=== PATIENT | female | born 1935 | race Caucasian/White ===

== ENCOUNTER 2016-08-31 17:37 | Inpatient (IN) ==
[2016-08-31] MEDS ORDERED: Dexamethasone 4 MG/ML VIAL IVP ONE (17:47)
[2016-08-31] MEDS ORDERED: Ipratropium/Albuterol Neb 3 ML IH ONE (17:48)
[2016-08-31] MEDS ORDERED: Racepinephrine Neb 0.5 ML VIAL IH ONE (18:00)
[2016-08-31 18:04] LABS: Basophils % 0.3 %; Eosinophils # 0.5 K/mcL (0.0-0.6); Hematocrit 32.7 % (35.3-44.9); Hemoglobin 11.2 g/dL (11.5-15.4); Immature Granulocytes % 0.6 % (0-4); Lymphocytes # 1.6 K/mcL (0.6-4.6); Lymphocytes % 13.5 %; Mean Corpuscular HGB Conc 34.3 g/dL (31.6-35.5); Mean Corpuscular Hemoglobin 26.9 pg (28.0-33.3); Mean Corpuscular Volume 78.4 fL (83.0-100.0); Mean Platelet Volume 9.2 fL (9.4-12.4); Monocytes # 0.9 K/mcL (0.0-1.3); Monocytes % 7.7 %; Neutrophils # 8.5 K/mcL (1.6-8.9); Platelet Count 266 K/mcL (140-400); Red Blood Count 4.17 M/mcL (3.82-4.97); Red Cell Distribution Width 13.1 % (11.5-14.5); Segmented Neutrophils % 73.9 %
[2016-08-31 18:10] LABS: INR 1.1; Prothrombin Time 11.4 Seconds (9.4-12.1)
[2016-08-31 18:12] LABS: Activated Partial Thrombo Time 33.6 Seconds (26.0-36.0)
[2016-08-31 18:14] LABS: Potassium 4.3 mEq/L (3.5-4.5)
[2016-08-31] MEDS ORDERED: Furosemide 40 MG/4 ML VIAL IVP ONE (20:32)
--- NOTE | 2016-08-31 21:43 | Emergency Department Note ---
Disposition Clinical Impression: Hyponatremia Congestive heart failure Qualifiers: Congestive heart failure type: unspecified congestive heart failure type Congestive heart failure chronicity: acute on chronic Qualified Code(s): I50.9 - Heart failure, unspecified Disposition: Admitted As Inpatient Condition: Good Referrals: NO,PCP [Non-Partnered Physician] - Forms: ED Satisfaction Letter Time of Disposition: 20:45 SOB HPI - General Chief Complaint: ED Shortness of Breath/Dyspnea Stated Complaint: shortness of breath Time Seen by Provider: 08/31/16 17:45 Source: patient, EMS Mode of arrival: ambulatory Limitations: no limitations Nursing Notes Reviewed: Yes Vital Signs Reviewed: Yes - History of Present Illness Patient presents emergency room for evaluation of shortness of breath. Primary care provider is seen her today and was concerned about her having a blood clot in the leg and a pulmonary emboli. Patient denies any other symptoms prior to these events no chest pain no fevers no chills no nausea vomiting or diarrhea. Denies headache or vision change. Patient denies any significant changes medical issue or trauma at this point. Family is with her at the bedside and said that she is acting normally except that she is at increased work of breathing Pt Subjective Complaint: shortness of breath Onset (ago): day(s) Context: other Severity: mild Consistency/Duration: constant Improves with: oxygen, rest Worsens with: lying flat, exertion Known history of: congestive heart failure, other (Neck mass) Associated symptoms: Reports: lower extremity pain Treatment prior to arrival: oxygen, bronchodilator Cough present: Yes Cough Description: Voluntary - Related Data Home Medications Medication Instructions Recorded Confirmed Amlodipine Besylate 10 mg PO DAILY 08/31/16 08/31/16 Aspirin Enteric Coated [Aspirin EC] 81 mg PO DAILY 08/31/16 08/31/16 Atenolol [Tenormin] 50 mg PO QPM 08/31/16 08/31/16 Atenolol [Tenormin] 100 mg PO QAM 08/31/16 08/31/16 Ca/D3/Mag#11/Zinc/Portfolio Director/Wing/Bor 1 each PO DAILY 08/31/16 08/31/16 [Caltrate 600+D Plus Tablet] Carbidopa/Levodopa 25/100 [Sinemet 1 each PO TID 08/31/16 08/31/16 25/100] Lansoprazole [Prevacid] 15 mg PO DAILY 08/31/16 08/31/16 Levothyroxine [Synthroid] 25 mcg PO 0630 08/31/16 08/31/16 Loratadine [Claritin] 10 mg PO DAILY PRN 08/31/16 08/31/16 Losartan Potassium [Cozaar] 50 mg PO DAILY 08/31/16 08/31/16 [place]-3/Dha/Epa/Fish Oil [Fish Oil 1,000 mg PO DAILY 08/31/16 08/31/16 1,000 mg Softgel] Sennosides/Docusate Sodium [Senna 1 - 2 each PO DAILY PRN 08/31/16 08/31/16 Plus] hydrALAZINE [HydrALAZINE] 25 mg PO BID 08/31/16 08/31/16 hydrOXYzine HCl [Hydroxyzine HCl] 25 mg PO HS 08/31/16 08/31/16 Allergies Allergy/AdvReac Type Severity Reaction Status Date / Time No Known Allergies Allergy Verified 08/31/16 17:59 All systems ED: reviewed and negative except as stated. Constitutional: Denies: fever, chills Cardiovascular: Denies: chest pain, palpitations, dyspnea on exertion, orthopnea Respiratory: Reports: stridor. Denies: cough, dyspnea, wheezes Gastrointestinal: Denies: nausea, vomiting, diarrhea Genitourinary: Denies: dysuria, frequency Musculoskeletal: Reports: neck pain. Denies: back pain Neurological: Denies: headache Allergic/Immunologic: Denies: facial swelling Past Medical History - Past Medical History Attestation: Yes The following information was validated with the patient. Source: patient Medical history: Reports: hypertension, thyroid disease, other Psychiatric history: Reports: no psych history - Social History Smoking Status: Never smoker Smokeless Tobacco Status: No Alcohol use: Reports: none Drug use: Reports: none Physical Exam - General Limitations: no limitations General appearance: alert, in no apparent distress - ENT ENT exam: normal oropharynx, mucous membranes moist - Neck Neck exam: Present: full ROM, trachea midline, thyromegaly (Significant thyromegaly noted with firm mass to the greater area the anterior aspect of the neck. Stridor auscultated on exam). Absent: meningismus, lymphadenopathy - Chest Chest inspection: Present: normal inspection, symmetric chest wall rise. Absent : tenderness - Respiratory Respiratory exam: Present: normal lung sounds bilaterally, stridor. Absent: respiratory distress, wheezes - Cardiovascular Cardiovascular exam: Present: regular rate, normal rhythm, normal heart sounds - Abdominal Exam Abdominal exam: Present: soft, Non-Tender. Absent: tenderness, distention, guarding, rebound, rigidity - Extremities Exam Extremities exam: Present: normal inspection, full ROM, normal capillary refill , pedal edema (Right lower extremity edema). Absent: tenderness - Back Exam Back exam: Present: normal inspection - Neurological Exam Neurological exam: Present: alert, oriented X3, CN II-XII intact, normal gait - Skin Skin exam: Present: warm, dry, intact, normal color Course Course Narrative: Patient seen and examined the time of arrival. See history of present illness. 81-year-old female presents with increased work of breathing stridor and shortness of breath with hypoxia from the primary care provider's office. Physical exam shows an moderately distressed female. Sitting upright in the bed slightly leaning forward. There is audible stridor noted on exam patient is a large anterior border noted on the neck evaluation. Lungs appear to be clear heart is regular abdomen soft nontender nondistended. Bilateral lower extremities were evaluated the right lower extremity is small and no signs of pitting edema warmth or redness. Pulses are intact. Neck evaluation shows no signs of acute decompensation at this point. She is range of motion the neck. I am extremely concerned about possible airway related issues at this point. The goiter appears to be a chronic issue according to her. Physical exam shows moderate distress female vital signs are reviewed heart rate is normal pulse ox is diminished at this time she is requiring oxygen for which she does not wear home. Based on the symptoms history presentation as well as a concern for the primary care provider. CT chest CT with contrast of the neck kidney function BNP EKG troponin to be ordered. Concern is noted for fluid overload, lower extremities DVT, pulmonary embolus or infection, large neck mass or infection in the neck as well. Doppler study of the lower stimulator. Symptom control to be provided as needed. Breathing treatments racemic epinephrine steroids to be given at this time. Looked to monitor his treatment course is completed. Patient will need admission the hospital for definitive management. My concern is for airway compromise and decompensation. - Reevaluation(s) Reevaluation #1: Patient found to have hyponatremia based on lab workup. She also has an elevated BNP and fluid overload. Doppler study of the right lower extremity is negative for acute DVT. CT imaging was called in to me by the radiologist from [place]. Patient has a large goiter that is obstructing the trachea at this time. There is likely a 6 mm slit opening where she is able to breathe through at this time. This accounts for the stridor. Patient's symptoms did not change with the medications that were provided to her here. Pulse ox and vital signs of been stable throughout the course of care but still concerning. Consultation was placed on at that time to the on-call intervals and throat physician Dr. patel. The presentation symptom examining finding. Her recommendation is that the patient be transported outside facility for possible stenting esophageal surgery. She does not do that procedure. I went and discussed this concern and recommendations with the family and the patient. Patient family had a long discussion the bedside about what her wishes would be. She does not want surgery on her neck at that time. Family is in agreement with the patient's decision. Patient is of sound mind and able to make her own decisions this time and everybody agrees with that presentation that is at the bedside. Patient signed DNR CCA paperwork was DO NOT INTUBATE and do not cardiac resuscitated. She also does not want acute cricothyrotomy or surgical airway. Patient understands this and understands what the indications are not having these interventions done. Based on the symptoms and history patient does have what appears to be fluid overload and hyponatremia. Patient be given a single dose of Lasix and consultation on the placed with the hospitalist at this time for admission symptom treatment of hyponatremia and fluid overload. Patient family are comfortable with this plan. Discussion was had with the on-call physician Dr. morris. The presentation symptoms and CODE STATUS. No other recommendations this time. No other concerns or symptoms at this time. Vital signs are stable throughout the course of care. Admission process to be completed at this point. Time: 20:30 Vital Signs Temperature 97.2 F L 08/31/16 17:39 Pulse Rate 93 08/31/16 17:39 Respiratory Rate 24 08/31/16 17:39 Blood Pressure 161/73 08/31/16 17:39 O2 Sat by Pulse Oximetry 94 08/31/16 17:39 Temperature 97.2 F L 08/31/16 17:39 Pulse Rate 58 08/31/16 20:57 Respiratory Rate 20 08/31/16 20:57 Blood Pressure 111/81 08/31/16 20:57 O2 Sat by Pulse Oximetry 97 08/31/16 20:57 Oxygen Delivery Oxygen Delivery Nasal Cannula Shortness of Breath/Dyspnea - MDM Narrative Medical decision making narrative: CHF exacerbation, hyponatremia, tracheal stenosis - Medical Records Medical records reviewed: Yes I reviewed the patient's medical records. - Lab Data Lab results reviewed: Yes I reviewed the patient's lab results. Result diagrams: 08/31/16 17:56 08/31/16 17:56 Lab Results 08/31/16 08/31/16 08/31/16 Range/Units 17:56 17:56 17:56 WBC 11.5 H (4.3-11.1) K/mcL RBC 4.17 (3.82-4.97) M/mcL Hgb 11.2 L (11.5-15.4) g/dL Hct 32.7 L (35.3-44.9) % MCV 78.4 L (83.0-100.0) fL MCH 26.9 L (28.0-33.3) pg MCHC 34.3 (31.6-35.5) g/dL RDW 13.1 (11.5-14.5) % Plt Count 266 (140-400) K/mcL MPV 9.2 L (9.4-12.4) fL Immature Gran % 0.6 (0-4) % Seg Neutrophils % 73.9 % Lymphocytes % 13.5 % Monocytes % 7.7 % Eosinophils % 4.0 % Basophils % 0.3 % Neutrophils # 8.5 (1.6-8.9) K/mcL Lymphocytes # 1.6 (0.6-4.6) K/mcL Monocytes # 0.9 (0.0-1.3) K/mcL Eosinophils # 0.5 (0.0-0.6) K/mcL Basophils # 0.0 (0.0-0.2) K/mcL PT 11.4 (9.4-12.1) Seconds INR 1.1 APTT 33.6 (26.0-36.0) Seconds Sodium 119 L* (136-145) mEq/L Potassium 4.3 (3.5-4.5) mEq/L Chloride 90 L (98-109) mEq/L Carbon Dioxide 19 (19-29) mEq/L BUN 16 (7-20) mg/dL Creatinine 1.18 H (0.57-1.11) mg/dL Est GFR ( Amer) 53 L (> 60) Est GFR (Non-Af Amer) 44 L (> 60) BUN/Creatinine Ratio 14 (6-26) Glucose 133 H (70-99) mg/dL Calculated Osmolality 251 L (280-300) Lactic Acid (0.5-2.2) mmol/L Calcium 9.0 (8.6-10.8) mg/dL Troponin I (0-0.03) ng/mL B-Natriuretic Peptide (0-100) pg/mL 08/31/16 08/31/16 08/31/16 Range/Units 17:56 17:56 17:56 WBC (4.3-11.1) K/mcL RBC (3.82-4.97) M/mcL Hgb (11.5-15.4) g/dL Hct (35.3-44.9) % MCV (83.0-100.0) fL MCH (28.0-33.3) pg MCHC (31.6-35.5) g/dL RDW (11.5-14.5) % Plt Count (140-400) K/mcL MPV (9.4-12.4) fL Immature Gran % (0-4) % Seg Neutrophils % % Lymphocytes % % Monocytes % % Eosinophils % % Basophils % % Neutrophils # (1.6-8.9) K/mcL Lymphocytes # (0.6-4.6) K/mcL Monocytes # (0.0-1.3) K/mcL Eosinophils # (0.0-0.6) K/mcL Basophils # (0.0-0.2) K/mcL PT (9.4-12.1) Seconds INR APTT (26.0-36.0) Seconds Sodium (136-145) mEq/L Potassium (3.5-4.5) mEq/L Chloride (98-109) mEq/L Carbon Dioxide (19-29) mEq/L BUN (7-20) mg/dL Creatinine (0.57-1.11) mg/dL Est GFR ( Amer) (> 60) Est GFR (Non-Af Amer) (> 60) BUN/Creatinine Ratio (6-26) Glucose (70-99) mg/dL Calculated Osmolality (280-300) Lactic Acid 1.2 (0.5-2.2) mmol/L Calcium (8.6-10.8) mg/dL Troponin I 0.01 (0-0.03) ng/mL B-Natriuretic Peptide 396 H (0-100) pg/mL - Radiology Data Radiology results reviewed: Yes I reviewed the patient's radiology results. CT imaging of the neck and chest are concerning for a large goiter with tracheal deviation stenosis. Pleural effusions noted on exam. No signs of pulmonary emboli - EKG Data EKG attestation: Yes I reviewed and interpreted this EKG. EKG shows normal: Reports: sinus rhythm, axis, intervals, QRS complexes, ST-T waves Rate: Reports: normal Rhythm: Reports: NSR Critical Care Time Critical Care Time: Yes Total Critical Care Time: 35 Attestation: Independent of medical management consultations and treatment course
--- NOTE | 2016-08-31 23:25 | Internal Med History&Physical ---
<KayodeStanley - Last Filed: 09/01/16 00:07> Date of Encounter: 09/01/16 Time of Encounter: 23:22 Assessment and Plan (1) Acute respiratory failure Current visit: Yes Status: Acute Secondary to significant goiter obstructing her airway as demonstrated on CT; in addition to undiagnosed CHF as she is hyponatremic and fluid overloaded on exam ENT was consulted and recommended surgery but patient refuses aggressive therapy at this time She has having productive clear sputum possibly due to acute bronchitis, will start on Levaquin 500 mg IV daily and collect sputum cx Supportive measures with supplemental oxygen, duonebs scheduled and PRN, and decadron 4 mg q8hr Will consult palliative care to discuss goals of care as patient is DNR/CCA-DNI , appreciate recommendations Qualifiers: Qualified Code(s): J96.00 - Acute respiratory failure, unspecified whether with hypoxia or hypercapnia (2) Hyponatremia Current visit: Yes Status: Acute Sodium found to be 119 upon admission, likely due to CHF exacerbation as demonstrated on CXR and fluid overload clinically Will start on Lasix 40 mg IV BID as she is naive to diuretics and fluid restrict at 1.5 L daily and strict I/O's Limit correction of sodium to under 9 mEq per day to prevent cerebral edema (3) Goiter Current visit: Yes Status: Chronic Although patient denies any recent changes in appearance, the size and subsequent findings on CT suggest her thyromegaly is the primary cause of her respiratory complaints Patient did receive racemic epi and steroids in the ED She confirmed that she does not want any intervention as recommended by our ENT Will continue Synthroid as she states this has helped control the size of her goiter in the past Obtain TSH, free T3/T4 (4) Congestive heart failure Current visit: Yes Status: Suspected Will obtain echocardiogram to evaluate for CHF as she has not been formally diagnosed Fluid restrict and Lasix as above Qualifiers: Congestive heart failure type: unspecified congestive heart failure type Congestive heart failure chronicity: acute on chronic Qualified Code(s): I50.9 - Heart failure, unspecified (5) Hypertension Current visit: Yes Status: Chronic Blood pressures well controlled upon admission Will resume home anti-hypertensives Qualifiers: Qualified Code(s): I10 - Essential (primary) hypertension (6) DVT prophylaxis Current visit: Yes Status: Acute Heparin 5000 units BID Internal Medicine - H&P: HPI Chief complaint: shortness of breath Admitted From: Home Plans for Post Hospital Care: Home History of present illness: Ms. Rooney is a 81 year old female who was sent over from her PCPs office for shortness of breath. Patient was initially concerned about a clot in her right leg as it was swollen and painful. She states that she had progressive shortness of breath over the past 1 or 2 weeks. She denies any pulmonary history and does not use oxygen or inhalers at home. Of note, she does have a significant goiter but states that this has been stable for many decades and has not noted any recent growth, and has not had any problems with swallowing foods/liquids. She is currently on Synthroid and has never been interested in any surgical intervention. She also reports having a productive cough of clear sputum has been going on for several weeks. Patient lives with her daughter and notes that she is very active usually but has had shortness of breath with exertion lately. CT of her neck at the ED showed significant narrowing of her trachea due to thyromegaly and ENT was consulted and recommended transfer to another facility for surgical intervention. Both daughter and granddaughter, the DPOA, are at bedside and confirmed that she does not want any aggressive intervention at this time and wish to change her CODE STATUS to DNR CCA/DNI. Patient denies any fever, chest pain, neck pain, lightheadedness, nausea, vomiting, diarrhea or urinary complaints. Past Med Surg Social Fam HX - Past Medical History Medical history: hypertension, thyroid disease, other Psychiatric history: no psych history - Social History Smoking Status: Never smoker Smokeless Tobacco Status: No Alcohol use: none Drug use: none - Family History Mother History Unknown: Yes Living Status: Age at : 89 Cause of : OLD AGE Internal Medicine - H&P: Meds Amlodipine Besylate 10 mg PO DAILY 08/31/16 [History] Aspirin Enteric Coated [Aspirin EC] 81 mg PO DAILY 08/31/16 [History] Atenolol [Tenormin] 50 mg PO QPM 08/31/16 [History] Atenolol [Tenormin] 100 mg PO QAM 08/31/16 [History] Ca/D3/Mag#11/Zinc/Optical Mechanic Apprentice/Wing/Bor [Caltrate 600+D Plus Tablet] 1 each PO DAILY 08/12 [History] Carbidopa/Levodopa 25/100 [Sinemet 25/100] 1 each PO TID 08/31/16 [History] Lansoprazole [Prevacid] 15 mg PO DAILY 08/31/16 [History] Levothyroxine [Synthroid] 25 mcg PO 0630 08/31/16 [History] Loratadine [Claritin] 10 mg PO DAILY PRN 08/31/16 [History] Losartan Potassium [Cozaar] 50 mg PO DAILY 08/31/16 [History] [place]-3/Dha/Epa/Fish Oil [Fish Oil 1,000 mg Softgel] 1,000 mg PO DAILY 08/31/16 [History] Sennosides/Docusate Sodium [Senna Plus] 1 - 2 each PO DAILY PRN 08/31/16 [ History] hydrALAZINE [HydrALAZINE] 25 mg PO BID 08/31/16 [History] hydrOXYzine HCl [Hydroxyzine HCl] 25 mg PO HS 08/31/16 [History] Allergies No Known Allergies Allergy (Verified 08/31/16 17:59) All Systems PM: A 10-system review of systems was performed and is negative for pertinent findings except as documented above in the HPI. - Constitutional Constitutional: weakness, no chills, no fever(s), no night sweats - EENT Eyes: no change in vision, no discharge, no pain, no photophobia Ears: no ear discharge, no ear pain, no tinnitus Nose, mouth and throat: neck mass, no dysphagia, no nasal discharge, no neck pain, no sore throat - Cardiovascular Cardiovascular ROS IM: dyspnea, dyspnea on exertion, no chest pain, no diaphoresis, no lightheadedness, no palpitations, no syncope - Respiratory Respiratory: cough, change in phlegm color, no dyspnea, no wheezing, no excessive phlegm production - Gastrointestinal Gastrointestinal: no abdominal pain, no diarrhea, no hematemesis, no hematochezia, no melena, no nausea, no vomiting - Genitourinary Genitourinary: no change in urinary stream, no dysuria, no flank pain, no hematuria - Musculoskeletal Musculoskeletal ROS IM: muscle cramps, no numbness, no tingling - Integumentary Integumentary IM: no rash, no unusual bruising - Neurological Neurological ROS: restless legs, no confusion, no convulsions, no focal weakness , no numbness, no tingling, no tremor(s) - Hematologic/Lymphatic Hematologic/Lymphatic: no easy bruising - Constitutional Vitals: Temp Pulse Resp BP Pulse Ox 97.6 F 60 16 137/62 97 08/31/16 22:51 08/31/16 22:51 08/31/16 22:51 08/31/16 22:51 08/31/16 22:51 General appearance: Present: cooperative, pleasant, no acute distress, answers questions appropriately - Head Head exam: Present: atraumatic, normocephalic - Eye Eye exam: Present: PERRL, conjuntiva pink, sclera anicteric - Neck Neck exam general surgery: Present: supple, trachea midline. Absent: lymphadenopathy - Respiratory Respiratory exam: Present: stridor. Absent: accessory muscle use, rales, rhonchi, wheezes - Cardiovascular Cardiovascular exam: Present: RRR, +S1, +S2. Absent: diastolic murmur, gallop, rubs, systolic murmur - GI/Abdominal GI/Abdominal exam: Present: normal bowel sounds, soft, no peritoneal signs. Absent: distended, tenderness - Extremities Exam Extremities exam: Present: pedal edema (R>L), tenderness, warm, radial pulses palpable and symetrical. Absent: calf tenderness, cyanotic - Neurological Exam Neurological exam: Present: alert, no focal deficits. Absent: facial droop, speech deficit - Skin Skin exam: Present: dry, intact Internal Med - H&P Results - Labs CBC & Chem 7: 08/31/16 17:56 08/31/16 17:56 <Janay Ramirez - Last Filed: 09/01/16 08:19> Date of Encounter: 09/01/16 Internal Medicine - H&P: HPI History of present illness: Ms. Rooney is a 81 year old female All Systems PM: A 10-system review of systems was performed and is negative for pertinent findings except as documented above in the HPI. - Constitutional Vitals: Temp Pulse Resp BP Pulse Ox 97.7 F 63 18 119/47 96 09/01/16 04:19 09/01/16 04:19 09/01/16 04:19 09/01/16 04:19 09/01/16 04:19 Internal Med - H&P Results - Labs CBC & Chem 7: 09/01/16 02:55 09/01/16 02:55 Labs: Short CBC 09/01/16 Range/Units 02:55 WBC 7.9 (4.3-11.1) K/mcL Hgb 10.4 L (11.5-15.4) g/dL Hct 30.1 L (35.3-44.9) % Plt Count 236 (140-400) K/mcL Neutrophils # 7.1 (1.6-8.9) K/mcL BMP 09/01/16 02:55 Sodium 120 L* Potassium 4.6 H Chloride 90 L Carbon Dioxide 19 BUN 19 Creatinine 1.23 H Glucose 129 H Calcium 8.8 - Attending Attestation I examined this patient and my medical decision-making was reviewed with the Resident Physician. I agree with the documented findings, disposition and treatment plan as described
[2016-08-31] MEDS ORDERED: Ondansetron ODT 4 MG TAB.RAPDIS SL PRN (23:55)
[2016-08-31] MEDS ORDERED: Naloxone 0.4 MG/ML INJ IVP PRN (23:55)
[2016-08-31] MEDS ORDERED: Acetaminophen 325 MG TABLET PO PRN (23:55)
[2016-08-31] MEDS ORDERED: Loratadine 10 MG TABLET PO PRN (23:58)
[2016-08-31] MEDS ORDERED: Sennosides/Docusate Sodium TABLET PO PRN (23:58)
[2016-09-01] MEDS ORDERED: Ipratropium/Albuterol Neb 3 ML IH PRN (00:07)
[2016-09-01] MEDS ORDERED: Levofloxacin 500 MG/100 ML 500 MG/100 ML BAG IVPB SCH (01:00)
[2016-09-01] MEDS: *HR* HYDROcodone/Acet 5/325 mg TABLET PO PRN ×2 (01:02→16:33)
[2016-09-01 04:11] LABS: Basophils % 0.1 %; Eosinophils % 0.1 %; Hematocrit 30.1 % (35.3-44.9); Hemoglobin 10.4 g/dL (11.5-15.4); Immature Platelets 3.7 % (1.1-6.1); Lymphocytes # 0.7 K/mcL (0.6-4.6); Lymphocytes % 8.3 %; Mean Corpuscular HGB Conc 34.6 g/dL (31.6-35.5); Mean Corpuscular Hemoglobin 27.2 pg (28.0-33.3); Mean Corpuscular Volume 78.8 fL (83.0-100.0); Monocytes # 0.1 K/mcL (0.0-1.3); Monocytes % 0.8 %; Neutrophils # 7.1 K/mcL (1.6-8.9); Platelet Count 236 K/mcL (140-400); Red Blood Count 3.82 M/mcL (3.82-4.97); Red Cell Distribution Width 13.2 % (11.5-14.5); Segmented Neutrophils % 89.7 %
[2016-09-01 04:28] LABS: Calcium 8.8 mg/dL (8.6-10.8); Potassium 4.6 mEq/L (3.5-4.5)
[2016-09-01 04:44] LABS: Thyroid Stimulating Hormone 0.62 mcIU/mL (0.350-4.840); Triiodothyronine (T3) Free 2.08 pg/mL (1.71-3.71)
[2016-09-01] MEDS: Ipratropium/Albuterol Neb 3 ML IH SCH ×4 (04:44→21:55)
[2016-09-01] MEDS: Levothyroxine 25 MCG TABLET PO SCH (06:49)
[2016-09-01] MEDS: *HR* Heparin 5,000 UNIT/ML VIAL SQ SCH ×2 (06:49→17:22)
--- NOTE | 2016-09-01 07:27 | Venous Imaging Report ---
LE Venous Duplex Patient Name:Rachel Rooney Order Number:[id number] Procedure Date:08/31/2016 Date:5Age:81 yrs Gender:Female Location:[facility] ED Room #: ER1 Wool Buyer:Yoko Tenoriozuri Referring MD:Nahid Rebolledo DO machine engraver:Savi Palacios MD Reading MD:Simone Miranda MD Primary Indications:swelling Secondary Indications: Impressions: Normal right lower extremity deep and superficial venous exam. Normal contralateral common femoral vein. Recommendations: After imaging the patient returned to their room. Gave vascular preliminary results to Nahid Rebolledo in the emergency department on 08/31/2016 at 18:58. Test completed on 08/31/2016 at 6:47:00 pm. Findings Venous Duplex Results: Right: Venous imaging of the lower extremity reveals full patency and normal vessel compressibility of the right distal iliac, right common femoral, right superficial femoral, right popliteal, right posterior tibial, right peroneal, right great saphenous and right lesser saphenous. Doppler signals in the evaluated veins were normal. Left: Venous imaging of the lower extremity reveals full patency and normal vessel compressibility of the left common femoral. Doppler signals in the evaluated veins were normal. Prior Study: No prior study available for comparison. Lower Extremity Venous Duplex Side Vein Compress Spontaneous Flow Augment Diameter (cm) Depth (cm) Right Distal Iliac Normal Yes Phasic Yes Right Common Femoral Normal Yes Phasic Yes Right Superficial Femoral Normal Yes Phasic Yes Right Popliteal Normal Yes Phasic Yes Right Posterior Tibial Normal Yes Phasic Yes Right Peroneal Normal Yes Phasic Yes Right Great Saphenous Normal Yes Phasic Yes Right Lesser Saphenous Normal Yes Phasic Yes Left Common Femoral Normal Yes Phasic Yes Updated by Simone Miranda MD on 09/01/2016 7:20:34 AM electronically signed on 09/01/2016 7:20:44 AM with status of Final
[2016-09-01] MEDS: Dexamethasone 4 MG/ML VIAL IVP SCH ×2 (09:19→16:33)
[2016-09-01] MEDS: Carbidopa/Levodopa 25/100 TABLET PO SCH ×3 (09:19→20:08)
[2016-09-01] MEDS: Aspirin Enteric Coated 81 MG Tablet PO SCH (09:19)
[2016-09-01] MEDS: amLODIPine 5 MG TABLET PO SCH (09:19)
[2016-09-01] MEDS: Furosemide 40 MG/4 ML VIAL IVP SCH ×2 (09:20→20:08)
[2016-09-01 09:57] LABS: Potassium 4.8 mEq/L (3.5-4.5)
--- NOTE | 2016-09-01 11:26 | Palliative - Consult Note ---
Date of Encounter: 09/01/16 Time of Encounter: 11:00 - Assessment and Plan (1) Dyspnea Current Visit: Yes Status: Acute Assessment and plan: Patient states slightly improved. Remains on supportive oxygen. On antibiotic therapy as well. She was began on steroids for possible stridor/airway obstruction on admission. Monitor Qualifiers: Dyspnea type: shortness of breath Qualified Code(s): R06.02 - Shortness of breath (2) Generalized pain Current Visit: Yes Status: Acute Assessment and plan: Utilized [place] x2 since admission. Monitor. Most pain at this time r/t legs and edema. Monitor. (3) Counseling regarding advanced care planning and goals of care Current Visit: Yes Status: Acute Assessment and plan: Met with pt and granddaughter re: goals of care. She lives with daughter Danitza , and granddaughter Kassy is primary POA. She has living will completed as well and Kassy brought copies of these and they have been placed on the medical record. Patient has also already transitioned code status to DNR/DNI. She does not desire any type of surgical intervention for goiter, and has been very outspoken regarding her wishes. Spoke with Dr. Rivas, who believes that her acute dyspnea is related to CHF and possible pneumonia. For additional testing today. Will continue to monitor clinical course. (4) Congestive heart failure Current Visit: Yes Status: Suspected Qualifiers: Congestive heart failure type: unspecified congestive heart failure type Congestive heart failure chronicity: acute on chronic Qualified Code(s): I50.9 - Heart failure, unspecified (5) Goiter Current Visit: Yes Status: Chronic (6) Hyponatremia Current Visit: Yes Status: Acute Palliative-CN HPI - Data of Consult Consult date: 09/01/16 Requesting Physician: Tracy Rivas MD Primary Care Provider: Savi Palacios - Consult Narrative Palliative Care/Comfort Measures: Palliative care History of present illness: Ms. Rooney is a 81 year old female who arrived to ER with c/o increasing shortness of breath. She has history of Parkinsons disease, HTN, and thyroid disease. There was concern re: pt has large goiter and CT demonstrated compression on trachea with narrowing of airway. Discussion with pt/family regarding surgical intervention was held, however any intervention was declined by patient. She was started on IV Decadron. She was also hyponatremic, and on fluid restriction. Receiving treatment with IV antibiotics as well for possible pneumonia and IV diuretics for heart failure. Awaiting echocardiogram. Upon my visit, pt is sitting on side of bed. Granddaughter and great-grandsons at bedside. She denies any pain, does complain of "restless legs and discomfort from the edema". Still somewhat short of breath, states improved slightly from admission. Palliative care was consulted to assist with goals of care discussion with patient with possible airway constriction/obstruction and she has refused surgical intervention or intubation. CC: Tracy Rivas MD Past Med Surg Social Fam HX - Past Medical History Medical history: hypertension, thyroid disease, other (Parkinson's disease) Psychiatric history: no psych history - Social History Smoking Status: Never smoker Smokeless Tobacco Status: No Alcohol use: none Drug use: none - Family History Mother History Unknown: Yes Living Status: Age at : 89 Cause of : OLD AGE Medications and Allergies Amlodipine Besylate 10 mg PO DAILY 08/31/16 [History] Aspirin Enteric Coated [Aspirin EC] 81 mg PO DAILY 08/31/16 [History] Atenolol [Tenormin] 50 mg PO QPM 08/31/16 [History] Atenolol [Tenormin] 100 mg PO QAM 08/31/16 [History] Ca/D3/Mag#11/Zinc/Customer Account Technician/Wing/Bor [Caltrate 600+D Plus Tablet] 1 each PO DAILY 08/12 [History] Carbidopa/Levodopa 25/100 [Sinemet 25/100] 1 each PO TID 08/31/16 [History] Lansoprazole [Prevacid] 15 mg PO DAILY 08/31/16 [History] Levothyroxine [Synthroid] 25 mcg PO 0630 08/31/16 [History] Loratadine [Claritin] 10 mg PO DAILY PRN 08/31/16 [History] Losartan Potassium [Cozaar] 50 mg PO DAILY 08/31/16 [History] [place]-3/Dha/Epa/Fish Oil [Fish Oil 1,000 mg Softgel] 1,000 mg PO DAILY 08/31/16 [History] Sennosides/Docusate Sodium [Senna Plus] 1 - 2 each PO DAILY PRN 08/31/16 [ History] hydrALAZINE [HydrALAZINE] 25 mg PO BID 08/31/16 [History] hydrOXYzine HCl [Hydroxyzine HCl] 25 mg PO HS 08/31/16 [History] Allergies No Known Allergies Allergy (Verified 08/31/16 17:59) All systems: reviewed and no additional remarkable complaints except as stated ( Shortness of breath at rest, restless legs, lower extremity edema) Palliative Care-Exam - Constitutional Vitals: Temp Pulse Resp BP Pulse Ox 97.6 F 62 16 139/70 96 09/01/16 07:44 09/01/16 07:44 09/01/16 10:51 09/01/16 07:44 09/01/16 10:51 General appearance: Present: no acute distress - Head Head Exam: Present: normal inspection, normocephalic - ENT Additional comments: Large goiter noted to left neck - Neck Neck exam: Present: thyromegaly - Respiratory Respiratory exam: Present: decreased breath sounds - Cardiovascular Cardiovascular exam: Present: +S1, +S2 - GI/Abdominal Exam GI/Abdominal exam: Present: normal bowel sounds, soft - Extremities Exam Additional comments: 2+edema lower extremities - Neurological Exam Neurological exam: Present: alert, oriented X3, strengths equal and symetr throughout - Skin Skin exam: Present: dry, pallor, warm Internal Medicine - CN: Reslt - Labs CBC & Chem 7: 09/01/16 02:55 09/01/16 09:28 Labs: Short CBC 09/01/16 Range/Units 02:55 WBC 7.9 (4.3-11.1) K/mcL Hgb 10.4 L (11.5-15.4) g/dL Hct 30.1 L (35.3-44.9) % Plt Count 236 (140-400) K/mcL Neutrophils # 7.1 (1.6-8.9) K/mcL BMP 09/01/16 09/01/16 02:55 09:28 Sodium 120 L* 121 L Potassium 4.6 H 4.8 H Chloride 90 L 90 L Carbon Dioxide 19 20 BUN 19 22 H Creatinine 1.23 H 1.47 H Glucose 129 H 168 H Calcium 8.8 9.0 - ABG Interpretation ABG results: PT/INR, D-dimer PT 11.4 Seconds (9.4-12.1) 08/31/16 17:56 Consult Discharge Plan - Plan Referrals: Savi Palacios MD [Primary Care Provider] - (SENT REQUEST ON 09-01-16 @ 1187) NO,PCP [Non-Partnered Physician] - Palliative Quality Palliative Quality: Screen for Code Status: Yes, Screen for Goals of Care: Yes, Screen for Pain: Yes, If Pain Regimen Started, Initiate Bowel Regimen: Yes, Screen for Nausea/Vomitting: Yes Code Status: 08/31/16 23:55 Resuscitation Status: Active [RES] Routine Comment: Resuscitation Status: [id number]
--- NOTE | 2016-09-01 11:47 | Internal Med Progress Note ---
Date of Encounter: 09/01/16 Time of Encounter: 11:33 - Subjective Interval history: Mrs. Rachel Rooney is an 81-year-old female who has a large multi-nodular goiter resented with shortness of breath due to multiple factors including compression of trachea with the enlarged goiter, new right lower and middle lobe pneumonia which could be aspiration, new symmetrical bilateral pleural effusions perhaps related to new onset CHF she denies any chest pain but she does have productive cough. She is not known to have any cardiac issues in the past and therefore I will recheck her troponin and waiting for her echocardiogram to be completed while she has been started on IV Lasix 40 twice a day. Her CBC CMP and magnesium will be checked periodically. She has has in started on IV Levaquin which I will DC and start her on IV Zosyn. She is already on IV Decadron and nebulizers which can be continued. He does not have any prior history of smoking though. Patient was seen by ENT in ER yesterday who recommended surgical intervention for her goiter but patient declined. We will see with medical management how much her smear improved however this morning she looked pretty stable and even it I took her nasal oxygen off and she was still maintaining oxygen saturation in the range of 95%. She also has hyponatremia and perhaps chronic kidney disease as she is followed by nephrology beside hypertension and Parkinson disease. As IV Lasix was given her sodium started coming up which signifies that it could be due to underlying volume overload. Palliative care is going to see the patient. I could not access to the problem list therefore here I will make a problem list for her this visit. Acute respiratory distress, tracheal compression secondary to enlarged multinodular goiter, onset congestive heart failure, right sided pneumonia, COPD with exacerbation, hyponatremia, hypertension and stage III chronic kidney disease Parkinson - Constitutional Vitals: Temp Pulse Resp BP Pulse Ox 97.6 F 62 16 139/70 96 09/01/16 07:44 09/01/16 07:44 09/01/16 10:51 09/01/16 07:44 09/01/16 10:51 General appearance: Present: cooperative, pleasant, no acute distress, answers questions appropriately Internal Medicine: Result - Labs CBC & Chem 7: 09/01/16 02:55 09/01/16 09:28 Labs: Short CBC 09/01/16 Range/Units 02:55 WBC 7.9 (4.3-11.1) K/mcL Hgb 10.4 L (11.5-15.4) g/dL Hct 30.1 L (35.3-44.9) % Plt Count 236 (140-400) K/mcL Neutrophils # 7.1 (1.6-8.9) K/mcL BMP 09/01/16 09/01/16 02:55 09:28 Sodium 120 L* 121 L Potassium 4.6 H 4.8 H Chloride 90 L 90 L Carbon Dioxide 19 20 BUN 19 22 H Creatinine 1.23 H 1.47 H Glucose 129 H 168 H Calcium 8.8 9.0 - ABG Interpretation ABG results: PT/INR, D-dimer PT 11.4 Seconds (9.4-12.1) 08/31/16 17:56 Consult Discharge Plan - Plan Referrals: NO,PCP [Non-Partnered Physician] -
[2016-09-01] MEDS: Piperacillin/Tazobactam 3.375 GM in D5% in Water (Mini-Bag+) 100 ML IVPB SCH (16:33)
--- NOTE | 2016-09-01 17:37 | Electrocardiograph Report ---
[place] [id number] Test Date: 2016-08-31 Pat Name: Rachel Rooney Department: 103 Room: 2N06 Gender: F Credit Department Manager: FER : 1935 Requested By: Nahid Rebolledo Order Number: [id number] Reading MD: Darcie Orozco Measurements Intervals [place] Rate: 75 P: 47 AK: 170 QRS: -15 QRSD: 88 T: 5 QT: 392 QTc: 421 Interpretive Statements SINUS RHYTHM LEFT VENTRICULAR HYPERTROPHY AND ST-T CHANGE Electronically Signed On 09-01-2016 17:35:59 EDT by Darcie Orozco
[2016-09-02] MEDS: Piperacillin/Tazobactam 3.375 GM in D5% in Water (Mini-Bag+) 100 ML IVPB SCH ×3 (00:48→16:32)
[2016-09-02] MEDS: Dexamethasone 4 MG/ML VIAL IVP SCH ×2 (00:48→08:38)
[2016-09-02] MEDS: Ipratropium/Albuterol Neb 3 ML IH SCH ×4 (03:58→21:04)
[2016-09-02 04:04] LABS: Basophils % 0.1 %; Eosinophils % 0.1 %; Hemoglobin 10.2 g/dL (11.5-15.4); Lymphocytes # 1.3 K/mcL (0.6-4.6); Lymphocytes % 8.7 %; Mean Corpuscular Hemoglobin 27.1 pg (28.0-33.3); Mean Corpuscular Volume 79.8 fL (83.0-100.0); Mean Platelet Volume 9.8 fL (9.4-12.4); Monocytes # 0.7 K/mcL (0.0-1.3); Monocytes % 4.5 %; Neutrophils # 12.7 K/mcL (1.6-8.9); Platelet Count 302 K/mcL (140-400); Red Blood Count 3.76 M/mcL (3.82-4.97); Red Cell Distribution Width 13.2 % (11.5-14.5); Segmented Neutrophils % 85.6 %
[2016-09-02 04:19] LABS: Albumin 3.7 g/dL (3.5-5.0); Albumin/Globulin Ratio 1.2 (1.1-2.2); Bilirubin,Total 0.5 mg/dL (0.2-1.2); Calcium 8.5 mg/dL (8.6-10.8); Globulin 3.2 g/dL (2.4-3.5); Potassium 4.3 mEq/L (3.5-4.5); Total Protein 6.9 g/dL (6.0-8.3)
[2016-09-02] MEDS ORDERED: *HR* Heparin 5,000 UNIT/ML VIAL ONE (06:09)
[2016-09-02] MEDS: *HR* Heparin 5,000 UNIT/ML VIAL SQ SCH ×2 (06:19→16:32)
[2016-09-02] MEDS: Levothyroxine 25 MCG TABLET PO SCH (06:20)
[2016-09-02] MEDS: Furosemide 40 MG/4 ML VIAL IVP SCH ×2 (08:41→20:02)
--- NOTE | 2016-09-02 08:43 | Internal Med Progress Note ---
Date of Encounter: 09/02/16 Time of Encounter: 08:40 - Assessment and plan (1) Bacterial pneumonia Current Visit: Yes Status: Acute Assessment and plan: On IV antibiotics continue monitoring CBC and clinical improvement (2) Bilateral pleural effusion Current Visit: Yes Status: Acute Assessment and plan: Perhaps related to congestive heart failure continue diuresis (3) Acute diastolic (congestive) heart failure Current Visit: Yes Status: Acute Assessment and plan: Echocardiogram performed showed ejection fraction above 60% while RV pressure in the range of 35 signifying moderate pulmonary hypertension and dilated left atrium with mitral regurgitation continue diuresis (4) Multinodular goiter Current Visit: Yes Status: Acute Assessment and plan: Compressing on trachea, ENT has evaluated the patient, patient declined surgical option. If she agrees to surgery she will be transferred to [place]. Thyroid function test checked the satisfactory and goiter does not seem toxic (5) DVT prophylaxis Current Visit: Yes Status: Acute Assessment and plan: On Lovenox (6) Hypertension Current Visit: Yes Status: Chronic Assessment and plan: Resume medication and continue monitoring daily Qualifiers: Hypertension type: essential hypertension Qualified Code(s): I10 - Essential (primary) hypertension (7) Dyspnea Current Visit: Yes Status: Acute Assessment and plan: Probably multifactorial as her goiter is compressing on trachea, also has bilateral pleural effusion with acute diastolic congestive heart failure and right-sided pneumonia. ENT evaluation obtained and patient declined surgical options. Continue diuretic and antibiotics. Monitor oxygen demand Qualifiers: Dyspnea type: shortness of breath Qualified Code(s): R06.02 - Shortness of breath (8) Counseling regarding advanced care planning and goals of care Current Visit: Yes Status: Acute Assessment and plan: Palliative care offered but patient declined she is DNR CC DNR (9) COPD with acute exacerbation Current Visit: Yes Status: Acute Assessment and plan: IV steroids and med nebs continue monitoring oxygen demand (10) Stage III chronic kidney disease Current Visit: Yes Status: Acute Assessment and plan: Continue monitoring renal function and avoid nephrotoxins - Subjective Interval history: Mrs. Rachel Rooney is an 81-year-old female who has a large multi-nodular goiter resented with shortness of breath due to multiple factors including compression of trachea with the enlarged goiter, new right lower and middle lobe pneumonia which could be aspiration, new symmetrical bilateral pleural effusions perhaps related to new onset CHF she denies any chest pain but she does have productive cough. She is not known to have any cardiac issues in the past and therefore I will recheck her troponin and waiting for her echocardiogram to be completed while she has been started on IV Lasix 40 twice a day. Her CBC CMP and magnesium will be checked periodically. She has has in started on IV Levaquin which I will DC and start her on IV Zosyn. She is already on IV Decadron and nebulizers which can be continued. He does not have any prior history of smoking though. Patient was seen by ENT in ER yesterday who recommended surgical intervention for her goiter but patient declined. We will see with medical management how much her smear improved however this morning she looked pretty stable and even it I took her nasal oxygen off and she was still maintaining oxygen saturation in the range of 95%. She also has hyponatremia and perhaps chronic kidney disease as she is followed by nephrology beside hypertension and Parkinson disease. As IV Lasix was given her sodium started coming up which signifies that it could be due to underlying volume overload. Palliative care is going to see the patient. I could not access to the problem list therefore here I will make a problem list for her this visit. Acute respiratory distress, tracheal compression secondary to enlarged multinodular goiter, onset congestive heart failure, right sided pneumonia, COPD with exacerbation, hyponatremia, hypertension and stage III chronic kidney disease Parkinson 09/02 seems to be doing well. Plan discussed with patient and family questions answered. Plan to diurese her next 2 days as much as he can and probably a discharge by Sunday. echocardiogram has returned showing LV ejection fraction about 60% with diastolic dysfunction, severely dilated LA with moderate MR, moderate pulmonary hypertension with right ventricular pressure 35. Considering she has bilateral pleural effusion mainly due to her mitral regurgitation will plan to reduce afterload and increase her Lasix dose. We need to watch her sodium which is a still 119. Though neurologically she is stable and does not have any symptoms. If pulmonary infiltrates do not improve which we at this time are treating S pneumonia then in 6 weeks she might need a CT chest however considering the fact that she is DNR/DNI and very reluctant to any interventional procedure I am not sure what it would work even if we discover anything. Right now her target is to treat her pneumonia and COPD and CHF and hopefully stabilize her enough to let her go home at which time she can discuss plans about her thyroid goiter - Constitutional Vitals: Temp Pulse Resp BP Pulse Ox 97.5 F L 70 18 125/50 97 09/02/16 04:09 09/02/16 04:09 09/02/16 04:09 09/02/16 04:09 09/02/16 04:09 General appearance: Present: cooperative, pleasant, no acute distress, answers questions appropriately - Head Head exam: Present: atraumatic, normocephalic - Eye Eye exam: Present: PERRL, conjuntiva pink, sclera anicteric Pupils: Present: PERRL - Neck Neck exam general surgery: Present: supple, trachea midline. Absent: lymphadenopathy - Respiratory Respiratory exam: Present: CTAB. Absent: accessory muscle use, rales, rhonchi, wheezes - Cardiovascular Cardiovascular exam: Present: RRR, +S1, +S2. Absent: diastolic murmur, gallop, rubs, systolic murmur - GI/Abdominal GI/Abdominal exam: Present: normal bowel sounds, soft, no peritoneal signs. Absent: distended, tenderness - Extremities Exam Extremities exam: Present: warm, radial pulses palpable and symetrical. Absent : calf tenderness, cyanotic, pedal edema - Neurological Exam Neurological exam: Present: CN II-XII intact, oriented X3, no focal deficits. Absent: pronater drift, facial droop, speech deficit - Skin Skin exam: Present: dry, intact Internal Medicine: Result - Labs CBC & Chem 7: 09/02/16 03:40 09/02/16 03:40 Labs: Short CBC 09/02/16 Range/Units 03:40 WBC 14.8 H D (4.3-11.1) K/mcL Hgb 10.2 L (11.5-15.4) g/dL Hct 30.0 L (35.3-44.9) % Plt Count 302 (140-400) K/mcL Neutrophils # 12.7 H (1.6-8.9) K/mcL BMP 09/01/16 09/02/16 09:28 03:40 Sodium 121 L 119 L* Potassium 4.8 H 4.3 Chloride 90 L 85 L Carbon Dioxide 20 20 BUN 22 H 31 H Creatinine 1.47 H 1.73 H Glucose 168 H 242 H Calcium 9.0 8.5 L Cardiac Enzymes 09/01/16 Range/Units 11:47 Troponin I 0.02 (0-0.03) ng/mL Liver Function 09/02/16 Range/Units 03:40 Total Bilirubin 0.5 (0.2-1.2) mg/dL AST 34 (5-34) Units/L ALT 7 (0-55) Units/L Alkaline Phosphatase 67 (38-126) Units/L Albumin 3.7 (3.5-5.0) g/dL - ABG Interpretation ABG results: PT/INR, D-dimer PT 11.4 Seconds (9.4-12.1) 08/31/16 17:56 Consult Discharge Plan - Plan Referrals: Savi Palacios MD [Primary Care Provider] - 09/14/16 10:15 am ()
[2016-09-02] MEDS: amLODIPine 5 MG TABLET PO SCH (08:46)
[2016-09-02] MEDS: Carbidopa/Levodopa 25/100 TABLET PO SCH ×3 (08:47→20:02)
[2016-09-02] MEDS: Aspirin Enteric Coated 81 MG Tablet PO SCH (08:47)
[2016-09-03] MEDS: Piperacillin/Tazobactam 3.375 GM in D5% in Water (Mini-Bag+) 100 ML IVPB SCH ×3 (00:29→21:14)
[2016-09-03 03:07] LABS: Basophils % 0.1 %; Hematocrit 29.3 % (35.3-44.9); Hemoglobin 9.8 g/dL (11.5-15.4); Immature Granulocytes % 1.8 % (0-4); Immature Platelets 2.9 % (1.1-6.1); Lymphocytes # 0.7 K/mcL (0.6-4.6); Lymphocytes % 6.1 %; Mean Corpuscular HGB Conc 33.4 g/dL (31.6-35.5); Mean Corpuscular Volume 77.7 fL (83.0-100.0); Mean Platelet Volume 9.5 fL (9.4-12.4); Monocytes # 0.9 K/mcL (0.0-1.3); Monocytes % 7.3 %; Neutrophils # 10.3 K/mcL (1.6-8.9); Platelet Count 306 K/mcL (140-400); Red Blood Count 3.77 M/mcL (3.82-4.97); Red Cell Distribution Width 13.2 % (11.5-14.5); Segmented Neutrophils % 84.7 %
[2016-09-03 03:30] LABS: Albumin 3.6 g/dL (3.5-5.0); Albumin/Globulin Ratio 1.2 (1.1-2.2); Alkaline Phosphatase 60 Units/L (38-126); Aspartate Amino Transferase 42 Units/L (5-34); BUN/Creatinine Ratio 20 (6-26); Bilirubin,Total 0.6 mg/dL (0.2-1.2); Blood Urea Nitrogen 35 mg/dL (7-20); Calcium 8.3 mg/dL (8.6-10.8); Carbon Dioxide 25 mEq/L (19-29); Chloride 88 mEq/L (98-109); Globulin 2.9 g/dL (2.4-3.5); Glucose 112 mg/dL (70-99); Magnesium 2.1 mg/dL (1.6-2.6); Osmolality,Calculated 263 (280-300); Potassium 3.9 mEq/L (3.5-4.5); Sodium 122 mEq/L (136-145); Total Protein 6.5 g/dL (6.0-8.3); eGFR For African Americans 34 (> 60); eGFR For Non-African Americans 28 (> 60)
[2016-09-03 03:31] LABS: Alanine Aminotransferase < 6 Units/L (0-55)
[2016-09-03] MEDS: Ipratropium/Albuterol Neb 3 ML IH SCH ×4 (03:45→21:21)
[2016-09-03] MEDS: *HR* Heparin 5,000 UNIT/ML VIAL SQ SCH ×2 (06:12→19:17)
[2016-09-03] MEDS: Levothyroxine 25 MCG TABLET PO SCH (06:12)
[2016-09-03] MEDS: Carbidopa/Levodopa 25/100 TABLET PO SCH ×3 (08:44→21:13)
[2016-09-03] MEDS: Aspirin Enteric Coated 81 MG Tablet PO SCH (08:44)
[2016-09-03] MEDS: amLODIPine 5 MG TABLET PO SCH (08:44)
[2016-09-03] MEDS: Furosemide 40 MG/4 ML VIAL IVP SCH ×2 (08:44→21:13)
--- NOTE | 2016-09-03 17:17 | Internal Med Progress Note ---
Date of Encounter: 09/03/16 Time of Encounter: 17:15 - Assessment and plan (1) Bacterial pneumonia Current Visit: Yes Status: Acute (2) Bilateral pleural effusion Current Visit: Yes Status: Acute (3) Acute diastolic (congestive) heart failure Current Visit: Yes Status: Acute (4) Multinodular goiter Current Visit: Yes Status: Acute (5) DVT prophylaxis Current Visit: Yes Status: Acute (6) Hypertension Current Visit: Yes Status: Chronic Qualifiers: Hypertension type: essential hypertension Qualified Code(s): I10 - Essential (primary) hypertension (7) Dyspnea Current Visit: Yes Status: Acute Qualifiers: Dyspnea type: shortness of breath Qualified Code(s): R06.02 - Shortness of breath (8) Counseling regarding advanced care planning and goals of care Current Visit: Yes Status: Acute (9) COPD with acute exacerbation Current Visit: Yes Status: Acute (10) Stage III chronic kidney disease Current Visit: Yes Status: Acute - Subjective Interval history: Mrs. Rachel Rooney is an 81-year-old female who has a large multi-nodular goiter resented with shortness of breath due to multiple factors including compression of trachea with the enlarged goiter, new right lower and middle lobe pneumonia which could be aspiration, new symmetrical bilateral pleural effusions perhaps related to new onset CHF she denies any chest pain but she does have productive cough. She is not known to have any cardiac issues in the past and therefore I will recheck her troponin and waiting for her echocardiogram to be completed while she has been started on IV Lasix 40 twice a day. Her CBC CMP and magnesium will be checked periodically. She has has in started on IV Levaquin which I will DC and start her on IV Zosyn. She is already on IV Decadron and nebulizers which can be continued. He does not have any prior history of smoking though. Patient was seen by ENT in ER yesterday who recommended surgical intervention for her goiter but patient declined. We will see with medical management how much her smear improved however this morning she looked pretty stable and even it I took her nasal oxygen off and she was still maintaining oxygen saturation in the range of 95%. She also has hyponatremia and perhaps chronic kidney disease as she is followed by nephrology beside hypertension and Parkinson disease. As IV Lasix was given her sodium started coming up which signifies that it could be due to underlying volume overload. Palliative care is going to see the patient. I could not access to the problem list therefore here I will make a problem list for her this visit. Acute respiratory distress, tracheal compression secondary to enlarged multinodular goiter, onset congestive heart failure, right sided pneumonia, COPD with exacerbation, hyponatremia, hypertension and stage III chronic kidney disease Parkinson 09/02 seems to be doing well. Plan discussed with patient and family questions answered. Plan to diurese her next 2 days as much as he can and probably a discharge by Sunday. echocardiogram has returned showing LV ejection fraction about 60% with diastolic dysfunction, severely dilated LA with moderate MR, moderate pulmonary hypertension with right ventricular pressure 35. Considering she has bilateral pleural effusion mainly due to her mitral regurgitation will plan to reduce afterload and increase her Lasix dose. We need to watch her sodium which is a still 119. Though neurologically she is stable and does not have any symptoms. If pulmonary infiltrates do not improve which we at this time are treating S pneumonia then in 6 weeks she might need a CT chest however considering the fact that she is DNR/DNI and very reluctant to any interventional procedure I am not sure what it would work even if we discover anything. Right now her target is to treat her pneumonia and COPD and CHF and hopefully stabilize her enough to let her go home at which time she can discuss plans about her thyroid goiter 09/03 patient is awake and seems to be doing much better now. Sitting in bed without nasal oxygen and breathing much better. Chest exam is Milag[place] is absolutely clear. Slight elevation of BUN/creatinine due to diuresis but overall lung examination is good and she can be discharged. After starting antibiotic white count is improved. - Constitutional Vitals: Temp Pulse Resp BP Pulse Ox 97.6 F 65 15 123/58 96 09/03/16 16:21 09/03/16 16:21 09/03/16 16:21 09/03/16 16:21 09/03/16 16:21 General appearance: Present: cooperative, pleasant, no acute distress, underweight, answers questions appropriately - Head Head exam: Present: atraumatic, normocephalic - Eye Eye exam: Present: PERRL, conjuntiva pink, sclera anicteric Pupils: Present: PERRL - Neck Neck exam general surgery: Present: supple, trachea midline. Absent: lymphadenopathy - Respiratory Respiratory exam: Present: CTAB. Absent: accessory muscle use, rales, rhonchi, wheezes - Cardiovascular Cardiovascular exam: Present: RRR, +S1, +S2. Absent: diastolic murmur, gallop, rubs, systolic murmur - GI/Abdominal GI/Abdominal exam: Present: normal bowel sounds, soft, no peritoneal signs. Absent: distended, tenderness - Extremities Exam Extremities exam: Present: warm, radial pulses palpable and symetrical. Absent : calf tenderness, cyanotic, pedal edema - Neurological Exam Neurological exam: Present: CN II-XII intact, oriented X3, no focal deficits. Absent: pronater drift, facial droop, speech deficit - Skin Skin exam: Present: dry, intact Internal Medicine: Result - Labs CBC & Chem 7: 09/03/16 02:44 09/03/16 02:44 Labs: Short CBC 09/03/16 Range/Units 02:44 WBC 12.1 H (4.3-11.1) K/mcL Hgb 9.8 L (11.5-15.4) g/dL Hct 29.3 L (35.3-44.9) % Plt Count 306 (140-400) K/mcL Neutrophils # 10.3 H (1.6-8.9) K/mcL BMP 09/03/16 02:44 Sodium 122 L Potassium 3.9 Chloride 88 L Carbon Dioxide 25 BUN 35 H Creatinine 1.74 H Glucose 112 H Calcium 8.3 L Liver Function 09/03/16 Range/Units 02:44 Total Bilirubin 0.6 (0.2-1.2) mg/dL AST 42 H (5-34) Units/L ALT < 6 (0-55) Units/L Alkaline Phosphatase 60 (38-126) Units/L Albumin 3.6 (3.5-5.0) g/dL - ABG Interpretation ABG results: PT/INR, D-dimer PT 11.4 Seconds (9.4-12.1) 08/31/16 17:56 Consult Discharge Plan - Plan Referrals: Savi Palacios MD [Primary Care Provider] - 09/14/16 10:15 am ()
[2016-09-03] MEDS: Gabapentin 100 MG CAPSULE PO SCH (21:13)
[2016-09-04] MEDS: Ipratropium/Albuterol Neb 3 ML IH SCH ×4 (03:54→21:45)
[2016-09-04 05:49] LABS: Basophils % 0.1 %; Eosinophils # 0.1 K/mcL (0.0-0.6); Eosinophils % 0.8 %; Hematocrit 29.8 % (35.3-44.9); Hemoglobin 10.3 g/dL (11.5-15.4); Immature Granulocytes % 1.1 % (0-4); Lymphocytes # 1.3 K/mcL (0.6-4.6); Lymphocytes % 12.6 %; Mean Corpuscular HGB Conc 34.6 g/dL (31.6-35.5); Mean Corpuscular Hemoglobin 27.4 pg (28.0-33.3); Mean Corpuscular Volume 79.3 fL (83.0-100.0); Mean Platelet Volume 9.8 fL (9.4-12.4); Monocytes # 1.2 K/mcL (0.0-1.3); Monocytes % 11.3 %; Neutrophils # 7.6 K/mcL (1.6-8.9); Platelet Count 285 K/mcL (140-400); Red Blood Count 3.76 M/mcL (3.82-4.97); Red Cell Distribution Width 13.5 % (11.5-14.5); Segmented Neutrophils % 74.1 %
[2016-09-04] MEDS: *HR* Heparin 5,000 UNIT/ML VIAL SQ SCH ×2 (05:56→18:32)
[2016-09-04] MEDS: Levothyroxine 25 MCG TABLET PO SCH (05:57)
[2016-09-04 06:03] LABS: Albumin 3.6 g/dL (3.5-5.0); Albumin/Globulin Ratio 1.3 (1.1-2.2); Alkaline Phosphatase 57 Units/L (38-126); Aspartate Amino Transferase 46 Units/L (5-34); BUN/Creatinine Ratio 19 (6-26); Bilirubin,Total 0.7 mg/dL (0.2-1.2); Blood Urea Nitrogen 31 mg/dL (7-20); Calcium 8.3 mg/dL (8.6-10.8); Carbon Dioxide 25 mEq/L (19-29); Chloride 88 mEq/L (98-109); Globulin 2.7 g/dL (2.4-3.5); Glucose 82 mg/dL (70-99); Magnesium 2.1 mg/dL (1.6-2.6); Osmolality,Calculated 260 (280-300); Potassium 3.6 mEq/L (3.5-4.5); Sodium 122 mEq/L (136-145); Total Protein 6.3 g/dL (6.0-8.3); eGFR For African Americans 36 (> 60); eGFR For Non-African Americans 30 (> 60)
[2016-09-04 06:05] LABS: Alanine Aminotransferase < 6 Units/L (0-55)
--- NOTE | 2016-09-04 09:55 | Event Note ---
Date of Encounter: 09/04/16 Time of Encounter: 09:45 Patient awake and alert. Feeling better, shortness of breath has improved. Record reviewed. She has established code status and adv directives. Improving. Palliative currently not managing any symptoms and will sign off. Please call if needed.
[2016-09-04] MEDS: Piperacillin/Tazobactam 3.375 GM in D5% in Water (Mini-Bag+) 100 ML IVPB SCH ×2 (10:37→20:43)
[2016-09-04] MEDS: amLODIPine 5 MG TABLET PO SCH (10:38)
[2016-09-04] MEDS: Aspirin Enteric Coated 81 MG Tablet PO SCH (10:38)
[2016-09-04] MEDS: Furosemide 40 MG/4 ML VIAL IVP SCH ×2 (10:39→20:47)
[2016-09-04] MEDS: Carbidopa/Levodopa 25/100 TABLET PO SCH ×3 (10:39→21:01)
[2016-09-04] MEDS: Gabapentin 100 MG CAPSULE PO SCH ×2 (10:39→20:47)
--- NOTE | 2016-09-04 16:58 | Internal Med Progress Note ---
Date of Encounter: 09/04/16 Time of Encounter: 16:55 - Assessment and plan (1) Bacterial pneumonia Current Visit: Yes Status: Acute (2) Bilateral pleural effusion Current Visit: Yes Status: Acute (3) Acute diastolic (congestive) heart failure Current Visit: Yes Status: Acute (4) Multinodular goiter Current Visit: Yes Status: Acute (5) DVT prophylaxis Current Visit: Yes Status: Acute (6) Hypertension Current Visit: Yes Status: Chronic Qualifiers: Hypertension type: essential hypertension Qualified Code(s): I10 - Essential (primary) hypertension (7) Dyspnea Current Visit: Yes Status: Acute Qualifiers: Dyspnea type: shortness of breath Qualified Code(s): R06.02 - Shortness of breath (8) Counseling regarding advanced care planning and goals of care Current Visit: Yes Status: Acute (9) COPD with acute exacerbation Current Visit: Yes Status: Acute (10) Stage III chronic kidney disease Current Visit: Yes Status: Acute - Subjective Interval history: Mrs. Rachel Rooney is an 81-year-old female who has a large multi-nodular goiter resented with shortness of breath due to multiple factors including compression of trachea with the enlarged goiter, new right lower and middle lobe pneumonia which could be aspiration, new symmetrical bilateral pleural effusions perhaps related to new onset CHF she denies any chest pain but she does have productive cough. She is not known to have any cardiac issues in the past and therefore I will recheck her troponin and waiting for her echocardiogram to be completed while she has been started on IV Lasix 40 twice a day. Her CBC CMP and magnesium will be checked periodically. She has has in started on IV Levaquin which I will DC and start her on IV Zosyn. She is already on IV Decadron and nebulizers which can be continued. He does not have any prior history of smoking though. Patient was seen by ENT in ER yesterday who recommended surgical intervention for her goiter but patient declined. We will see with medical management how much her smear improved however this morning she looked pretty stable and even it I took her nasal oxygen off and she was still maintaining oxygen saturation in the range of 95%. She also has hyponatremia and perhaps chronic kidney disease as she is followed by nephrology beside hypertension and Parkinson disease. As IV Lasix was given her sodium started coming up which signifies that it could be due to underlying volume overload. Palliative care is going to see the patient. I could not access to the problem list therefore here I will make a problem list for her this visit. Acute respiratory distress, tracheal compression secondary to enlarged multinodular goiter, onset congestive heart failure, right sided pneumonia, COPD with exacerbation, hyponatremia, hypertension and stage III chronic kidney disease Parkinson 09/02 seems to be doing well. Plan discussed with patient and family questions answered. Plan to diurese her next 2 days as much as he can and probably a discharge by Sunday. echocardiogram has returned showing LV ejection fraction about 60% with diastolic dysfunction, severely dilated LA with moderate MR, moderate pulmonary hypertension with right ventricular pressure 35. Considering she has bilateral pleural effusion mainly due to her mitral regurgitation will plan to reduce afterload and increase her Lasix dose. We need to watch her sodium which is a still 119. Though neurologically she is stable and does not have any symptoms. If pulmonary infiltrates do not improve which we at this time are treating S pneumonia then in 6 weeks she might need a CT chest however considering the fact that she is DNR/DNI and very reluctant to any interventional procedure I am not sure what it would work even if we discover anything. Right now her target is to treat her pneumonia and COPD and CHF and hopefully stabilize her enough to let her go home at which time she can discuss plans about her thyroid goiter 09/03 patient is awake and seems to be doing much better now. Sitting in bed without nasal oxygen and breathing much better. Chest exam is Milagros is absolutely clear. Slight elevation of BUN/creatinine due to diuresis but overall lung examination is good and she can be discharged. After starting antibiotic white count is improved. 09/04 overall patient has improved. She is without oxygen breathing comfortably. She is not bleeding well and I was able to walk her myself almost 120 feet without any support or difficulty. She does not want to go to custodial. I think we can discharge her as with fluid restriction her sodium has a start coming up and it is 122 and neurologically she is okay but granddaughter wants to wait until sodium is 1:30. We will check sodium daily and ask nursing staff to keep total intake around 1200 mL.echocardiogram has returned showing LV ejection fraction about 60% with diastolic dysfunction, severely dilated LA with moderate MR, moderate pulmonary hypertension with right ventricular pressure 35. Considering she has bilateral pleural effusion mainly due to her mitral regurgitation will plan to reduce afterload and increase her Lasix dose. f pulmonary infiltrates do not improve which we at this time are treating S pneumonia then in 6 weeks she might need a CT chest however considering the fact that she is DNR/DNI and very reluctant to any interventional procedure I am not sure what it would work even if we discover anything. Right now her target is to treat her pneumonia and COPD and CHF and hopefully stabilize her enough to let her go home at which time she can discuss plans about her thyroid goiter. Apparently she she drank well water all her young life. 4 generations of her family they had goiters and I suspect it was due to iodine deficiency. By history she has a multinodular goiter though it as noted above she has refused any surgical option. - Constitutional Vitals: Temp Pulse Resp BP Pulse Ox 97.9 F 55 14 110/51 97 09/04/16 15:16 09/04/16 15:16 09/04/16 15:16 09/04/16 15:16 09/04/16 15:16 General appearance: Present: cooperative, pleasant, no acute distress, underweight, answers questions appropriately - Head Head exam: Present: atraumatic, normocephalic - Eye Eye exam: Present: PERRL, conjuntiva pink, sclera anicteric Pupils: Present: PERRL - Neck Neck exam general surgery: Present: supple, trachea midline. Absent: lymphadenopathy - Respiratory Respiratory exam: Present: CTAB. Absent: accessory muscle use, rales, rhonchi, wheezes - Cardiovascular Cardiovascular exam: Present: RRR, +S1, +S2. Absent: diastolic murmur, gallop, rubs, systolic murmur - GI/Abdominal GI/Abdominal exam: Present: normal bowel sounds, soft, no peritoneal signs. Absent: distended, tenderness - Extremities Exam Extremities exam: Present: warm, radial pulses palpable and symetrical. Absent : calf tenderness, cyanotic, pedal edema - Neurological Exam Neurological exam: Present: CN II-XII intact, oriented X3, no focal deficits. Absent: pronater drift, facial droop, speech deficit - Skin Skin exam: Present: dry, intact Internal Medicine: Result - Labs CBC & Chem 7: 09/04/16 04:43 09/04/16 04:43 Labs: Short CBC 09/04/16 Range/Units 04:43 WBC 10.2 (4.3-11.1) K/mcL Hgb 10.3 L (11.5-15.4) g/dL Hct 29.8 L (35.3-44.9) % Plt Count 285 (140-400) K/mcL Neutrophils # 7.6 (1.6-8.9) K/mcL BMP 09/04/16 04:43 Sodium 122 L Potassium 3.6 Chloride 88 L Carbon Dioxide 25 BUN 31 H Creatinine 1.66 H Glucose 82 Calcium 8.3 L Liver Function 09/04/16 Range/Units 04:43 Total Bilirubin 0.7 (0.2-1.2) mg/dL AST 46 H (5-34) Units/L ALT < 6 (0-55) Units/L Alkaline Phosphatase 57 (38-126) Units/L Albumin 3.6 (3.5-5.0) g/dL - ABG Interpretation ABG results: PT/INR, D-dimer PT 11.4 Seconds (9.4-12.1) 08/31/16 17:56 - Impressions Impressions Chest X-Ray 09/04/16 12:54 IMPRESSION: 1. Moderate right-sided pleural effusion. 2. Bibasilar opacification, which may represent atelectasis versus airspace disease. 3. Moderate hiatal hernia. D/ / Miki Boogie MD / Miki Boogie MD Interpreting Provider: Miki Boogie MD Consult Discharge Plan - Plan Referrals: Savi Palacios MD [Primary Care Provider] - 09/14/16 10:15 am ()
[2016-09-05] MEDS: Ipratropium/Albuterol Neb 3 ML IH SCH ×2 (03:55→09:05)
[2016-09-05] MEDS: Levothyroxine 25 MCG TABLET PO SCH (05:34)
[2016-09-05] MEDS: *HR* Heparin 5,000 UNIT/ML VIAL SQ SCH ×2 (05:34→17:48)
[2016-09-05 05:56] LABS: Albumin 3.4 g/dL (3.5-5.0); Albumin/Globulin Ratio 1.2 (1.1-2.2); Bilirubin,Total 0.5 mg/dL (0.2-1.2); Calcium 8.2 mg/dL (8.6-10.8); Globulin 2.8 g/dL (2.4-3.5); Potassium 3.7 mEq/L (3.5-4.5); Total Protein 6.2 g/dL (6.0-8.3)
[2016-09-05 07:00] LABS: Basophils % 0.1 %; Eosinophils # 0.6 K/mcL (0.0-0.6); Eosinophils % 5.3 %; Hemoglobin 10.3 g/dL (11.5-15.4); Lymphocytes # 1.2 K/mcL (0.6-4.6); Lymphocytes % 10.8 %; Mean Corpuscular HGB Conc 34.3 g/dL (31.6-35.5); Mean Corpuscular Hemoglobin 27.4 pg (28.0-33.3); Mean Corpuscular Volume 79.8 fL (83.0-100.0); Mean Platelet Volume 9.7 fL (9.4-12.4); Monocytes # 1.2 K/mcL (0.0-1.3); Monocytes % 11.3 %; Neutrophils # 7.6 K/mcL (1.6-8.9); Platelet Count 249 K/mcL (140-400); Red Blood Count 3.76 M/mcL (3.82-4.97); Red Cell Distribution Width 13.6 % (11.5-14.5); Segmented Neutrophils % 71.5 %
[2016-09-05] MEDS: Aspirin Enteric Coated 81 MG Tablet PO SCH (09:44)
[2016-09-05] MEDS: amLODIPine 5 MG TABLET PO SCH (09:44)
[2016-09-05] MEDS: Furosemide 40 MG/4 ML VIAL IVP SCH (09:45)
[2016-09-05] MEDS: Carbidopa/Levodopa 25/100 TABLET PO SCH ×3 (09:45→20:14)
[2016-09-05] MEDS: Gabapentin 100 MG CAPSULE PO SCH ×2 (09:45→20:14)
[2016-09-05] MEDS: Piperacillin/Tazobactam 3.375 GM in D5% in Water (Mini-Bag+) 100 ML IVPB SCH (09:45)
--- NOTE | 2016-09-05 13:24 | Internal Med Progress Note ---
Date of Encounter: 09/05/16 Time of Encounter: 12:55 - Assessment and plan (1) Hyponatremia Current Visit: Yes Status: Acute Assessment and plan: Resolving gradually. Will obtain urine sodium, urine osmolarity and serum osmolality levels. Will obtain serum uric acid level. Continue fluid restricted diet. Further management to depend on the results of her studies. Discontinue Lasix due to worsening renal function. Patient height is due to risk of seizures and lethal arrhythmias due to electrolyte imbalance. (2) Multinodular goiter Current Visit: Yes Status: Acute Assessment and plan: Compressing on trachea with tracheal diameter of 6 mm at one location. However, patient refusing surgical removal of the thyroid or interventional pulmonology based placement of tracheal stent. She has signed her advanced directives to be DNR comfort care arrest/DNI. Should the patient decide to pursue a surgical course/aggressive course, she will be transferred to [facility] for higher level of care. (3) Acute respiratory failure Current Visit: Yes Status: Resolved Assessment and plan: Patient is currently breathing on room air and is able to maintain her saturations. Qualifiers: Respiratory failure complication: hypoxia Qualified Code(s): J96.01 - Acute respiratory failure with hypoxia (4) Stage III chronic kidney disease Current Visit: Yes Status: Chronic Assessment and plan: Worsening renal function. Will discontinue Lasix. Hold losartan. Patient will require outpatient nephrology follow-up after discharge. (5) Hypertension Current Visit: Yes Status: Chronic Assessment and plan: Continue amlodipine. Hold losartan due to her renal function and borderline low blood pressure. Qualifiers: Hypertension type: essential hypertension Qualified Code(s): I10 - Essential (primary) hypertension - Subjective Interval history: Patient states that her breathing is much better. She denies any difficulty swallowing. She denies any nausea, vomiting, cough or wheezing. She states that she does not want surgery for goiter as she has always had it. When discussed about possible tracheal stent placement by interventional pulmonology , she states that she is not interested in that either. She reports that she has not had a bowel movement in over 3-4 days and is requesting a stool softener for helping to move her bowels. - Constitutional Vitals: Temp Pulse Resp BP Pulse Ox 97.7 F 63 18 116/44 97 09/05/16 12:06 09/05/16 12:09/05/16 12:06 09/05/16 12:06 09/05/16 12:06 General appearance: Present: cooperative, pleasant, no acute distress, underweight, answers questions appropriately Exam: Gen.: Lying in bed. Mild distress. ENT: Moist mucous membranes. No oropharyngeal erythema or discharge. Thyroid goiter present. Chest: Clear to auscultation bilaterally. No adventitious sounds present. CVS: First and second heart sounds present. No murmurs, rubs or gallops. Internal Medicine: Result - Labs CBC & Chem 7: 09/05/16 06:20 09/05/16 04:29 Labs: Short CBC 09/05/16 Range/Units 06:20 WBC 10.6 (4.3-11.1) K/mcL Hgb 10.3 L (11.5-15.4) g/dL Hct 30.0 L (35.3-44.9) % Plt Count 249 (140-400) K/mcL Neutrophils # 7.6 (1.6-8.9) K/mcL BMP 09/05/16 04:29 Sodium 124 L Potassium 3.7 Chloride 91 L Carbon Dioxide 22 BUN 32 H Creatinine 1.78 H Glucose 95 Calcium 8.2 L Liver Function 09/05/16 Range/Units 04:29 Total Bilirubin 0.5 (0.2-1.2) mg/dL AST 36 H (5-34) Units/L ALT 9 (0-55) Units/L Alkaline Phosphatase 62 (38-126) Units/L Albumin 3.4 L (3.5-5.0) g/dL - ABG Interpretation ABG results: PT/INR, D-dimer PT 11.4 Seconds (9.4-12.1) 08/31/16 17:56 - Impressions Impressions Chest X-Ray 09/04/16 12:54 IMPRESSION: 1. Moderate right-sided pleural effusion. 2. Bibasilar opacification, which may represent atelectasis versus airspace disease. 3. Moderate hiatal hernia. D/ / Miki Boogie MD / Miki Boogie MD Interpreting Provider: Miki Boogie MD Consult Discharge Plan - Plan Referrals: Palacios,Savi M, MD [Primary Care Provider] - 09/14/16 10:15 am ()
[2016-09-05] MEDS: Sennosides/Docusate Sodium TABLET PO SCH (20:14)
[2016-09-06 04:12] LABS: Basophils % 0.2 %; Eosinophils # 0.8 K/mcL (0.0-0.6); Eosinophils % 6.7 %; Hematocrit 30.4 % (35.3-44.9); Hemoglobin 10.3 g/dL (11.5-15.4); Lymphocytes # 1.2 K/mcL (0.6-4.6); Lymphocytes % 10.4 %; Mean Corpuscular HGB Conc 33.9 g/dL (31.6-35.5); Mean Corpuscular Hemoglobin 27.7 pg (28.0-33.3); Mean Corpuscular Volume 81.7 fL (83.0-100.0); Mean Platelet Volume 9.5 fL (9.4-12.4); Monocytes # 1.1 K/mcL (0.0-1.3); Neutrophils # 8.6 K/mcL (1.6-8.9); Platelet Count 234 K/mcL (140-400); Red Blood Count 3.72 M/mcL (3.82-4.97); Red Cell Distribution Width 13.9 % (11.5-14.5); Segmented Neutrophils % 72.7 %
[2016-09-06 04:44] LABS: Albumin 3.2 g/dL (3.5-5.0); Albumin/Globulin Ratio 1.1 (1.1-2.2); Bilirubin,Total 0.4 mg/dL (0.2-1.2); Calcium 8.8 mg/dL (8.6-10.8); Potassium 3.7 mEq/L (3.5-4.5); Total Protein 6.2 g/dL (6.0-8.3)
[2016-09-06] MEDS: Levothyroxine 25 MCG TABLET PO SCH (06:02)
[2016-09-06] MEDS: *HR* Heparin 5,000 UNIT/ML VIAL SQ SCH (06:02)
[2016-09-06] MEDS: Carbidopa/Levodopa 25/100 TABLET PO SCH ×2 (08:09→14:31)
[2016-09-06] MEDS: Gabapentin 100 MG CAPSULE PO SCH (08:09)
[2016-09-06] MEDS: Sennosides/Docusate Sodium TABLET PO SCH (08:09)
[2016-09-06] MEDS: Aspirin Enteric Coated 81 MG Tablet PO SCH (08:09)
[2016-09-06] MEDS: amLODIPine 5 MG TABLET PO SCH (08:10)
[2016-09-06 11:24] VITALS: BP 121/52
--- NOTE | 2016-09-06 13:27 | Discharge Summary ---
Date of Encounter: 09/06/16 Time of Encounter: 13:22 - Discharge Diagnosis (1) Multinodular goiter Priority: Primary Status: Chronic (2) Hyponatremia Priority: Secondary Status: Chronic (3) Acute respiratory failure Priority: Secondary Status: Resolved Qualifiers: Respiratory failure complication: hypoxia Qualified Code(s): J96.01 - Acute respiratory failure with hypoxia (4) Stage III chronic kidney disease Priority: Secondary Status: Chronic (5) Hypertension Priority: Secondary Status: Chronic Qualifiers: Hypertension type: essential hypertension Qualified Code(s): I10 - Essential (primary) hypertension - Discharge Medications Prescriptions: Albuterol Sulfate [Albuterol Inhaler] 1 puff IH Q6HR PRN #1 hfa.aer.ad PRN Reason: Shortness Of Breath/Wheezing GuaiFENesin Liq [Robitussin Liq] 200 mg PO Q6HR PRN #1 bottle PRN Reason: Cough Home Medications: Amlodipine Besylate 10 mg PO DAILY 08/31/16 [History] Aspirin Enteric Coated [Aspirin EC] 81 mg PO DAILY 08/31/16 [History] Atenolol [Tenormin] 50 mg PO QPM 08/31/16 [History] Atenolol [Tenormin] 100 mg PO QAM 08/31/16 [History] Ca/D3/Mag#11/Zinc/Floorhand/Wing/Bor [Caltrate 600+D Plus Tablet] 1 each PO DAILY 08/12 [History] Carbidopa/Levodopa 25/100 [Sinemet 25/100] 1 each PO TID 08/31/16 [History] Lansoprazole [Prevacid] 15 mg PO DAILY 08/31/16 [History] Levothyroxine [Synthroid] 25 mcg PO 0630 08/31/16 [History] Loratadine [Claritin] 10 mg PO DAILY PRN 08/31/16 [History] [place]-3/Dha/Epa/Fish Oil [Fish Oil 1,000 mg Softgel] 1,000 mg PO DAILY 08/31/16 [History] Sennosides/Docusate Sodium [Senna Plus] 1 - 2 each PO DAILY PRN 08/31/16 [ History] hydrALAZINE [HydrALAZINE] 25 mg PO BID 08/31/16 [History] hydrOXYzine HCl [Hydroxyzine HCl] 25 mg PO HS 08/31/16 [History] Albuterol Sulfate [Albuterol Inhaler] 1 puff IH Q6HR PRN #1 hfa.aer.ad 09/06/16 [Rx] GuaiFENesin Liq [Robitussin Liq] 200 mg PO Q6HR PRN #1 bottle 09/06/16 [Rx] Allergies/Adverse Reactions: Allergies No Known Allergies Allergy (Verified 08/31/16 17:59) Date of admission: 09/02/16 16:09 Primary care physician: Savi Palacios Consults: 09/04/16 12:50 Consult to Physical Therapy [CONS] Stat Comment: Evaluate, develop and implement POC Reason for Consult: possible need for ecf, rehab OT [Consult to Occupational Therapy] [CONS] Stat Comment: Evaluate, develop and implement POC Reason for Consult: to see if any home needs Discharging clinician: Leland Benton Anticipated date of discharge: 09/06/16 - Patient Status Disposition: Home, Self-Care Condition: Fair Functional capacity at discharge: independent ambulation Overall status at discharge: patient is progressing back to baseline - Discharge Instructions Follow Up With: Savi Palacios MD [Primary Care Provider] - 09/14/16 10:15 am () Forms: ED Satisfaction Letter - Diet and Activity Activity: increase activity as tolerated Diet: advance to your usual diet Hospital course: Ms. Rooney is a 81 year old female who was sent from her primary care physician' s office for shortness of breath. Patient went to her primary care physician's office due to progressive shortness of breath of about 1-2 weeks' duration. In the emergency room, the patient had CT of her neck due to an enlarged multinodular thyroid. CT scan of the neck soft tissues reveal narrowing of the trachea which was 6 mm at one location. Patient also required oxygen supplementation due to her acute respiratory failure. Patient was given the option of transfer to [facility] for higher level of care. However, patient did not want any intervention done for her multinodular goiter including thyroidectomy or tracheal stent or cricothyroidectomy. Patient was admitted to the hospital and given racemic epinephrine and steroids. She was also given breathing treatments. With these treatments, her respiratory failure resolved. As she develop leukocytosis, she was given antibiotics. However, the leukocytosis was felt to be due to steroids and her anti-medics were discussed and year. Patient was monitored off antibiotics without any worsening of her symptoms. Patient was found to have hyponatremia. Patient was placed on a fluid restricted diet and her hyponatremia corrected. Patient was evaluated by palliative care and her goals of care have been addressed. Patient is DNR comfort care arrest/DNI. Patient also has a medical power of commercial attorney and her financial power of commercial attorney which is her granddaughter. As the patient is doing well and her hyponatremia is correcting, she has been deemed stable to be discharged home. She has been given a prescription for BMP to be performed on 09/08/2016 with the results to be sent to her primary care physician. Patient has been instructed to see her primary care physician within a week. Family has been instructed to not use any more diuretics and to discuss the same with her primary care physician. Patient has been given a prescription for albuterol and cough syrup. - Time Spent with Patient Total time spent providing and/or coordinating discharge services: Greater than 30 minutes (40 min) - Constitutional Vitals: Temp Pulse Resp BP Pulse Ox 97.5 F L 59 16 121/52 96 09/06/16 11:22 09/06/16 11:22 09/06/16 11:22 09/06/16 11:22 09/06/16 11:26 General appearance: Present: cooperative, pleasant, no acute distress, underweight, answers questions appropriately Exam: Gen.: Lying in bed. No acute distress. Goiter noticed in front of the neck. Chest: Clear to auscultation bilaterally. No adventitious sounds present. CVS: First and second heart sounds present. No murmurs, rubs or gallops.
== END 2016-09-06 14:56 | disposition home or self-care (01) | DRG 189 ==
LOC: 2NNU 17:37 → EMEROO 17:37 → 2NNU 22:30 → 2NENU 09-02 14:25 → SUATTDRO 09-02 16:09
PROVIDERS: ADMIT Internal Medicine; ATTEND Internal Medicine Sleep Medicine

== ENCOUNTER 2018-01-25 23:25 | Observation (INO) ==
[2018-01-26 00:48] LABS: Basophils % 0.2 %; Eosinophils % 0.4 %; Hematocrit 23.9 % (35.3-44.9); Hemoglobin 7.6 g/dL (11.5-15.4); Immature Granulocytes % 0.4 % (0-4); Lymphocytes # 0.7 K/mcL (0.6-4.6); Lymphocytes % 7.5 %; Mean Corpuscular HGB Conc 31.8 g/dL (31.6-35.5); Mean Corpuscular Hemoglobin 27.1 pg (28.0-33.3); Mean Corpuscular Volume 85.4 fL (83.0-100.0); Monocytes # 0.7 K/mcL (0.0-1.3); Neutrophils # 7.7 K/mcL (1.6-8.9); Platelet Count 415 K/mcL (140-400); Red Cell Distribution Width 14.1 % (11.5-14.5); Segmented Neutrophils % 83.5 %
--- NOTE | 2018-01-26 00:49 | Emergency Department Note ---
Disposition Clinical Impression: Pelvic mass GI bleed Qualifiers: GI bleed type/associated pathology: unspecified gastrointestinal hemorrhage type Qualified Code(s): K92.2 - Gastrointestinal hemorrhage, unspecified Anemia Qualifiers: Anemia type: unspecified type Qualified Code(s): D64.9 - Anemia, unspecified Disposition: Admitted As Inpatient Condition: Fair Referrals: NONE,PCP [Primary Care Provider] - Forms: ED Satisfaction Letter Time of Disposition: 02:04 General Adult HPI - General Chief complaint: ED GI Bleed Stated complaint: vomiting blood Time Seen by Provider: 01/25/18 23:28 Source: patient, family, EMS Mode of arrival: EMS Limitations: physical limitation Nursing Notes Reviewed: Yes Vital Signs Reviewed: Yes - History of Present Illness HPI Narrative: 82-year-old female with complex past medical history including Parkinson's disease presenting from a shelter facility with chief complaint of vomiting up coffee ground emesis. According to EMS patient had one episode of coffee-ground emesis approximately 1 week ago. Self resolved. Has been fine ever since. Today she had been complaining of diffuse abdominal tenderness and had 10 episodes of coffee-ground emesis. Power of deputy attorney general at bedside. Denies any coagulation use. Patient is currently on hospice. Patient states she has diffuse abdominal tenderness but denies any chest pain, shortness of breath or recent fevers. According to family member at bedside patient has also had multiple falls at the shelter facility. Has been evaluated by the physician there but has not had any imaging completed. Pain Scale: 0 - Related Data Home Medications Medication Instructions Recorded Confirmed Amlodipine Besylate 10 mg PO DAILY 08/31/16 07/20/17 Aspirin Enteric Coated [Aspirin EC] 81 mg PO DAILY 08/31/16 07/20/17 Ca/D3/Mag#11/Zinc/Rubber Belt Splicer/Wing/Bor 1 each PO DAILY 08/31/16 07/20/17 [Caltrate 600+D Plus Tablet] Lansoprazole [Prevacid] 15 mg PO DAILY 08/31/16 07/20/17 Levothyroxine [Synthroid] 25 mcg PO 0608/31/16 07/20/17 Loratadine [Claritin] 10 mg PO DAILY PRN 08/31/16 07/20/17 [place]-3/Dha/Epa/Fish Oil [Fish Oil 1,000 mg PO DAILY 08/31/16 07/20/17 1,000 mg Softgel] hydrALAZINE [HydrALAZINE] 25 mg PO BID 08/31/16 07/20/17 hydrOXYzine HCl [Hydroxyzine HCl] 25 mg PO HS 08/31/16 07/20/17 Carbidopa/Levodopa/Entacapone 1 tab PO TID 07/20/17 07/20/17 [Stalevo 200 Tablet] GuaiFENesin/Dextromethorphan 1 tab PO BID 07/20/17 07/20/17 [Mucinex Dm] Metoprolol Succinate [Toprol Xl] 100 mg PO DAILY 07/20/17 07/20/17 Polyethylene Glycol 3350 [MiraLAX 1 scoop PO DAILY 07/20/17 07/20/17 Powder Bulk 17.9 Oz] Sertraline [Zoloft] 25 mg PO DAILY 07/20/17 07/20/17 clonazePAM [Klonopin] 0.5 mg PO HS 07/20/17 07/20/17 Allergies Allergy/AdvReac Type Severity Reaction Status Date / Time No Known Allergies Allergy Verified 08/31/16 17:59 All systems ED: reviewed and negative except as stated. Constitutional: Denies: fever, chills Eyes: Reports: as per HPI ENT ED: Reports: as per HPI Cardiovascular: Denies: chest pain, palpitations, dyspnea on exertion Respiratory: Denies: cough, dyspnea, wheezes Gastrointestinal: Reports: abdominal pain, nausea, vomiting Genitourinary: Reports: as per HPI Musculoskeletal: Reports: as per HPI Integumentary: Reports: as per HPI Neurological: Denies: numbness, paresthesias Psychiatric: Reports: as per HPI Endocrine: Reports: as per HPI Hematological/Lymphatic: Reports: as per HPI Allergic/Immunologic: Reports: as per HPI Past Medical History - Past Medical History Attestation: Yes The following information was validated with the patient. Medical history: Reports: hypertension, thyroid disease, other Psychiatric history: Reports: no psych history KIER PLEATER history: Reports: no KIER PLEATER history - Social History Smoking Status: Never smoker Smokeless Tobacco Status: No Alcohol use: Reports: none Drug use: Reports: none Physical Exam - General Limitations: physical limitation, other General appearance: alert - Head Head exam: normocephalic, other (Ecchymosis noted over the left frontal area) - Eye Eye exam: Present: normal appearance. Absent: scleral icterus, conjunctival injection - ENT ENT exam: normal exam, mucous membranes moist - Neck Neck exam: Present: other (Large goiter in the thyroid. Causing right side bending of the patient's neck) - Chest Chest inspection: Present: normal inspection, symmetric chest wall rise. Absent: tenderness, rash - Respiratory Respiratory exam: Present: normal lung sounds bilaterally. Absent: respiratory distress, wheezes - Cardiovascular Cardiovascular exam: Present: regular rate, normal rhythm, normal heart sounds - Abdominal Exam Abdominal exam: Present: soft, tenderness. Absent: distention, guarding, rebo und, rigidity Abdominal tenderness: Present: diffuse, mild - Extremities Exam Extremities exam: Present: normal inspection, full ROM - Neurological Exam Neurological exam: Present: alert - Psychiatric Psychiatric exam: Present: normal affect, normal mood - Skin Skin exam: Present: warm, intact Course Course Narrative: 82-year-old female presenting for multiple episodes of coffee-ground emesis. Concern for GI bleed. In the room she is alert and hemodynamically stable. Ph ysical exam shows a large thyroid goiter which patient has had her whole life. Also soft, mildly tender abdominal exam. Otherwise physical exam is benign. At this time we will work the patient up for a GI bleed including a CT of the abdomen and pelvis. Patient is currently on hospice. Power of deputy attorney general at bedside. Disposition pending results. Patient and power of deputy attorney general agrees with this plan. - Reevaluation(s) Reevaluation #1: Patient's laboratory analysis shows new onset anemia at 7.6. CT of abdomen and pelvis shows There is a large cystic mass measuring up to 8.45 cm in the posterior right pelvis that may be of right ovarian origin. The margins of the mass are not well visualized due to the lack of IV contrast and surrounding low-attenuation ascites. Cystic neoplasm must be considered and follow-up pelvic ultrasound would be helpful in further characterizing this lesion. There is infiltration of omental and mesenteric fat. While this may be secondary to the ascites, tumor infiltration is not excluded. Moderate to large right pleural effusion causing right lower lobe compressive atelectasis. Small left pleural effusion. Moderate-sized hiatal hernia. In addition to a pelvic ultrasound, image guided right thoracentesis and paracentesis would be helpful in further evaluation. At this time patient was spoke at length with power of deputy attorney general and family member at bedside. Agent decides to rescind her hospice status and would like to be a full code at this time. Patient CT results shared. Patient was still like further treatment of her GI bleed. At this time we will provide the patient with proton next and order 2 units of packed red blood cells. Patient remains hemodynamically stable in the room. At this time will plan to admit the patient. I spoke with the hospitalist branch operation evaluation manager Dr. Bose who agrees to accept the patient at this time Vital Signs Temperature 98.4 F 01/25/18 23:51 Pulse Rate 84 01/25/18 23:51 Respiratory Rate 18 01/25/18 23:51 Blood Pressure 137/63 01/25/18 23:51 O2 Sat by Pulse Oximetry 96 01/25/18 23:51 Temperature 98.4 F 01/25/18 23:51 Pulse Rate 84 01/25/18 23:51 Respiratory Rate 18 01/25/18 23:51 Blood Pressure 137/63 01/25/18 23:51 O2 Sat by Pulse Oximetry 96 01/25/18 23:51 Oxygen Delivery Oxygen Delivery Room Air Medical Decision Making - Lab Data Result diagrams: 01/26/18 00:22 01/26/18 00:22 Lab Results 01/26/18 01/26/18 01/26/18 Range/Units 00:22 00:22 00:22 WBC 9.2 (4.3-11.1) K/mcL RBC 2.80 L (3.82-4.97) M/mcL Hgb 7.6 L (11.5-15.4) g/dL Hct 23.9 L (35.3-44.9) % MCV 85.4 (83.0-100.0) fL MCH 27.1 L (28.0-33.3) pg MCHC 31.8 (31.6-35.5) g/dL RDW 14.1 (11.5-14.5) % Plt Count 415 H (140-400) K/mcL MPV 10.0 (9.4-12.4) fL Immature Gran % 0.4 (0-4) % Seg Neutrophils % 83.5 % Lymphocytes % 7.5 % Monocytes % 8.0 % Eosinophils % 0.4 % Basophils % 0.2 % Neutrophils # 7.7 (1.6-8.9) K/mcL Lymphocytes # 0.7 (0.6-4.6) K/mcL Monocytes # 0.7 (0.0-1.3) K/mcL Eosinophils # 0.0 (0.0-0.6) K/mcL Basophils # 0.0 (0.0-0.2) K/mcL Sodium 140 (136-145) mEq/L Potassium 3.8 (3.5-5.1) mEq/L Chloride 106 (98-107) mEq/L Carbon Dioxide 26 (23-29) mEq/L BUN 17 (8-23) mg/dL Creatinine 1.14 (0.60-1.20) mg/dL Est GFR ( Amer) 55 L (> 60) Est GFR (Non-Af Amer) 46 L (> 60) BUN/Creatinine Ratio 15 (6-26) Glucose 111 H (70-105) mg/dL Calculated Osmolality 292 (280-300) Calcium 8.4 L (8.6-10.3) mg/dL Total Bilirubin 0.3 (0.3-1.0) mg/dL AST 12 L (13-39) Units/L ALT < 3 L (7-52) Units/L Alkaline Phosphatase 101 (34-104) Units/L Serum Total Protein 5.2 L (6.4-8.9) g/dL Albumin 3.1 L (3.5-5.7) g/dL Globulin 2.1 L (2.4-3.5) g/dL Albumin/Globulin Ratio 1.5 (1.1-2.2) Lipase 10 L (11-82) Units/L Blood Type A POSITIVE Antibody Screen NEGATIVE Crossmatch See Detail - EKG Data EKG #1 EKG attestation: Yes I reviewed and interpreted this EKG. EKG results narrative: Sinus rhythm. 88 bpm. CO interval 159, QRS 90, QTC 475. No sign of acute ST segment elevation or ischemia.
[2018-01-26 01:14] LABS: Alanine Aminotransferase < 3 Units/L (7-52); Albumin 3.1 g/dL (3.5-5.7); Albumin/Globulin Ratio 1.5 (1.1-2.2); Alkaline Phosphatase 101 Units/L (34-104); Aspartate Amino Transferase 12 Units/L (13-39); BUN/Creatinine Ratio 15 (6-26); Bilirubin,Total 0.3 mg/dL (0.3-1.0); Blood Urea Nitrogen 17 mg/dL (8-23); Calcium 8.4 mg/dL (8.6-10.3); Carbon Dioxide 26 mEq/L (23-29); Chloride 106 mEq/L (98-107); Globulin 2.1 g/dL (2.4-3.5); Glucose 111 mg/dL (70-105); Lipase 10 Units/L (11-82); Osmolality,Calculated 292 (280-300); Potassium 3.8 mEq/L (3.5-5.1); Sodium 140 mEq/L (136-145); Total Protein 5.2 g/dL (6.4-8.9); eGFR For Non-African Americans 46 (> 60)
[2018-01-26] MEDS ORDERED: Pantoprazole 40 MG VIAL IVP ONE (01:33)
--- NOTE | 2018-01-26 02:05 | Emergency Department Note ---
Disposition Clinical Impression: Goiter, Upper GI bleed, Ovarian mass, right Hematemesis Qualifiers: Nausea presence: unspecified Qualified Code(s): K92.0 - Hematemesis Anemia Qualifiers: Anemia type: other cause Disposition: Admitted As Inpatient Referrals: NONE,PCP [Primary Care Provider] - Forms: ED Satisfaction Letter General Adult HPI - General Chief complaint: ED GI Bleed Stated complaint: vomiting blood Time Seen by Provider: 01/25/18 23:28 Source: patient, family, EMS Mode of arrival: EMS Limitations: physical limitation, other - History of Present Illness Pain Scale: 0 - Related Data Home Medications Medication Instructions Recorded Confirmed Amlodipine Besylate 10 mg PO DAILY 08/31/16 07/20/17 Aspirin Enteric Coated [Aspirin EC] 81 mg PO DAILY 08/31/16 07/20/17 Ca/D3/Mag#11/Zinc/Fretted String Instrument Repairer/Wing/Bor 1 each PO DAILY 08/31/16 07/20/17 [Caltrate 600+D Plus Tablet] Lansoprazole [Prevacid] 15 mg PO DAILY 08/31/16 07/20/17 Levothyroxine [Synthroid] [place] [address]/31/16 07/20/17 Loratadine [Claritin] 10 mg PO DAILY PRN 08/31/16 07/20/17 [place]-3/Dha/Epa/Fish Oil [Fish Oil 1,000 mg PO DAILY 08/31/16 07/20/17 1,000 mg Softgel] hydrALAZINE [HydrALAZINE] 25 mg PO BID 08/31/16 07/20/17 hydrOXYzine HCl [Hydroxyzine HCl] 25 mg PO HS 08/31/16 07/20/17 Carbidopa/Levodopa/Entacapone 1 tab PO TID 07/20/17 07/20/17 [Stalevo 200 Tablet] GuaiFENesin/Dextromethorphan 1 tab PO BID 07/20/17 07/20/17 [Mucinex Dm] Metoprolol Succinate [Toprol Xl] 100 mg PO DAILY 07/20/17 07/20/17 Polyethylene Glycol 3350 [MiraLAX 1 scoop PO DAILY 07/20/17 07/20/17 Powder Bulk 17.9 Oz] Sertraline [Zoloft] 25 mg PO DAILY 07/20/17 07/20/17 clonazePAM [Klonopin] 0.5 mg PO 07/20/17 07/20/17 Allergies Allergy/AdvReac Type Severity Reaction Status Date / Time No Known Allergies Allergy Verified 08/31/16 17:59 Constitutional: Denies: fever, chills Eyes: Reports: as per HPI ENT ED: Reports: as per HPI Cardiovascular: Denies: chest pain, palpitations, dyspnea on exertion Respiratory: Denies: cough, dyspnea, wheezes Gastrointestinal: Reports: abdominal pain, nausea, vomiting Genitourinary: Reports: as per HPI Musculoskeletal: Reports: as per HPI Integumentary: Reports: as per HPI Neurological: Denies: numbness, paresthesias Psychiatric: Reports: as per HPI Endocrine: Reports: as per HPI Hematological/Lymphatic: Reports: as per HPI Allergic/Immunologic: Reports: as per HPI Past Medical History - Past Medical History Medical history: Reports: hypertension, thyroid disease, other Psychiatric history: Reports: no psych history PROGRAM MANAGEMENT INTERN history: Reports: no PROGRAM MANAGEMENT INTERN history - Social History Smoking Status: Never smoker Smokeless Tobacco Status: No Alcohol use: Reports: none Drug use: Reports: none Physical Exam - General Limitations: physical limitation, other General appearance: alert Course Vital Signs Temperature 98.4 F 01/25/18 23:51 Pulse Rate 84 01/25/18 23:51 Respiratory Rate 18 01/25/18 23:51 Blood Pressure 137/63 01/25/18 23:51 O2 Sat by Pulse Oximetry 96 01/25/18 23:51 Temperature 98.4 F 01/25/18 23:51 Pulse Rate 84 01/25/18 23:51 Respiratory Rate 18 01/25/18 23:51 Blood Pressure 137/63 01/25/18 23:51 O2 Sat by Pulse Oximetry 96 01/25/18 23:51 Oxygen Delivery Oxygen Delivery Room Air Medical Decision Making - Lab Data Result diagrams: 01/26/18 00:22 01/26/18 00:22 Lab Results 01/26/18 01/26/18 01/26/18 Range/Units 00:22 00:22 00:22 WBC 9.2 (4.3-11.1) K/mcL RBC 2.80 L (3.82-4.97) M/mcL Hgb 7.6 L (11.5-15.4) g/dL Hct 23.9 L (35.3-44.9) % MCV 85.4 (83.0-100.0) fL MCH 27.1 L (28.0-33.3) pg MCHC 31.8 (31.6-35.5) g/dL RDW 14.1 (11.5-14.5) % Plt Count 415 H (140-400) K/mcL MPV 10.0 (9.4-12.4) fL Immature Gran % 0.4 (0-4) % Seg Neutrophils % 83.5 % Lymphocytes % 7.5 % Monocytes % 8.0 % Eosinophils % 0.4 % Basophils % 0.2 % Neutrophils # 7.7 (1.6-8.9) K/mcL Lymphocytes # 0.7 (0.6-4.6) K/mcL Monocytes # 0.7 (0.0-1.3) K/mcL Eosinophils # 0.0 (0.0-0.6) K/mcL Basophils # 0.0 (0.0-0.2) K/mcL Sodium 140 (136-145) mEq/L Potassium 3.8 (3.5-5.1) mEq/L Chloride 106 (98-107) mEq/L Carbon Dioxide 26 (23-29) mEq/L BUN 17 (8-23) mg/dL Creatinine 1.14 (0.60-1.20) mg/dL Est GFR ( Amer) 55 L (> 60) Est GFR (Non-Af Amer) 46 L (> 60) BUN/Creatinine Ratio 15 (6-26) Glucose 111 H (70-105) mg/dL Calculated Osmolality 292 (280-300) Calcium 8.4 L (8.6-10.3) mg/dL Total Bilirubin 0.3 (0.3-1.0) mg/dL AST 12 L (13-39) Units/L ALT < 3 L (7-52) Units/L Alkaline Phosphatase 101 (34-104) Units/L Serum Total Protein 5.2 L (6.4-8.9) g/dL Albumin 3.1 L (3.5-5.7) g/dL Globulin 2.1 L (2.4-3.5) g/dL Albumin/Globulin Ratio 1.5 (1.1-2.2) Lipase 10 L (11-82) Units/L Blood Type A POSITIVE Antibody Screen NEGATIVE Crossmatch See Detail Critical Care Time Critical Care Time: Yes Total Critical Care Time: 35 Attestation: Critical care time of 35 minutes spent in consultation with the family as well as treatment for GI bleed and blood transfusion Attestation Statement - Attestation Attestation: I examined this patient and my medical decision-making was reviewed with the Resident Physician. I agree with the documented findings, disposition and treatment plan as described except to the extent set forth below. 82-year-old female was sent into the emergency room for hematemesis from the halfway. Patient is accompanied by her granddaughter who is her POA. Patient apparently has been having some hematemesis today. She threw up about 10 times of some dark coffee-ground emesis. Workup here revealed a hemoglobin of 7. Says decreased from her baseline. 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 This was also a new diagnosis. Patient initially was a DNR however she would like to have this evaluated. She does not want to be a DNR at this time. Her POA seems to want her to remain a DNR. She was also placed on hospice on Sunday at the nursing facility. We have contacted the hospice nurse who is okay with her being admitted for blood products. They have taken her off the hospice list for now. Patient will likely be admitted for blood transfusion and evaluation of this possible right ovarian mass. She also has is a significant sized goiter that seems be causing her breathing difficulties. We did speak with the hospitalist who will admit the patient. We have ordered transfusion for blood. Patient is in a complicated situation as she seems to want treatment but I do not feel that she is strong enough for any surgical evaluation. We have ordered IV Protonix.
--- NOTE | 2018-01-26 03:57 | Internal Med History&Physical ---
<Julius Dunn - Last Filed: 01/26/18 05:22> Date of Encounter: 01/26/18 Time of Encounter: 03:57 Internal Medicine - H&P: HPI Chief complaint: GI Bleed Admitted From: Emergency Dept History of present illness: Ms. Rooney is a 82 year old female presenting with coffee-ground emesis, dark tarry material in urine, tarry stools and abdominal pain. Has history of HTN, thyroid disease, goiter, CHF, CKD stage III. She reports symptoms started 1 week ago. States that coffee-ground emesis, dark tarry material in urine, tarry stools do occur every few days. She is also having abdominal tenderness that is located diffusely in the upper quadrants, 8/10, nonradiating. She states her abdomen feels distended. At ED CT abdomen/pelvis shows a large cystic mass in the posterior pelvis possible ovarian in origin. In addition there is infiltration of omentum and mesentery. Additionally she has moderate to large pleural effusion causing RLL compressive atelectasis. Patient states that she is having SOB but denies pleuritic CP. CBC showed she was anemic around 7, so she was trafunsed with 2 units or PRBC. Patient would like to be full code. Past Med Surg Social Fam HX - Past Medical History Medical history: hypertension, thyroid disease, other Additional medical history: heart murmur, GERD Psychiatric history: no psych history - Social History Smoking Status: Never smoker Smokeless Tobacco Status: No Alcohol use: none Drug use: none - Family History Mother Living Status: Internal Medicine - H&P: Meds Amlodipine Besylate 10 mg PO DAILY 08/31/16 [History] Aspirin Enteric Coated [Aspirin EC] 81 mg PO DAILY 08/31/16 [History] Ca/D3/Mag#11/Zinc/Cut Out Worker/Wing/Bor [Caltrate 600+D Plus Tablet] 1 each PO DAILY 08/31/16 [History] Lansoprazole [Prevacid] 15 mg PO DAILY 08/31/16 [History] Levothyroxine [Synthroid] [place] [address]/31/16 [History] Loratadine [Claritin] 10 mg PO DAILY PRN 08/31/16 [History] [place]-3/Dha/Epa/Fish Oil [Fish Oil 1,000 mg Softgel] 1,000 mg PO DAILY 08/31/16 [History] hydrALAZINE [HydrALAZINE] 25 mg PO BID 08/31/16 [History] hydrOXYzine HCl [Hydroxyzine HCl] 25 mg PO HS 08/31/16 [History] Carbidopa/Levodopa/Entacapone [Stalevo 200 Tablet] 1 tab PO TID 07/20/17 [History] GuaiFENesin/Dextromethorphan [Mucinex Dm] 1 tab PO BID 07/20/17 [History] Metoprolol Succinate [Toprol Xl] 100 mg PO DAILY 07/20/17 [History] Polyethylene Glycol 3350 [MiraLAX Powder Bulk 17.9 Oz] 1 scoop PO DAILY 07/20/17 [History] Sertraline [Zoloft] 25 mg PO DAILY 07/20/17 [History] clonazePAM [Klonopin] 0.5 mg PO HS 07/20/17 [History] Allergy/AdvReac Type Severity Reaction Status Date / Time No Known Allergies Allergy Verified 08/31/16 17:59 All Systems PM: A 10-system review of systems was performed and is negative for pertinent findings except as documented above in the HPI. - Constitutional Constitutional: fatigue, falls, malaise, no anorexia, no chills - EENT Nose, mouth and throat: other (Patient has a goiter which she has had her whole life. ) - Cardiovascular Cardiovascular ROS IM: no chest pain, no palpitations - Respiratory Respiratory: cough (coffee ground sputum), hemoptysis (coffee ground), dyspnea on exertion, wheezing, no pain on inspiration, no pain with cough - Gastrointestinal Gastrointestinal: abdominal pain (mid epigastric to upper quadrants), hematemesis, melena - Genitourinary Genitourinary: hematuria (possibly fecalent ) - Neurological Additional comments: choreoform movements - Constitutional Vitals: Temp Pulse Resp BP Pulse Ox 98.4 F 84 21 126/79 96 01/25/18 23:51 01/25/18 23:51 01/26/18 02:53 01/26/18 02:53 01/25/18 23:51 General appearance: Present: mild distress, A&O X 3, pleasant, answers questions appropriately Exam: . - Head Head exam: Present: atraumatic, normal inspection - Eye Eye exam: Present: EOMI, normal appearance. Absent: conjuntiva pink - ENT Additional comments: Large goiter - Respiratory Respiratory exam: Present: wheezes Additional comments: R lower lung sounds absent - Expanded Respiratory Exam Location: decreased breath sounds: Right, Lower, rales: Left, Right, wheezes: Left, Right - Cardiovascular Cardiovascular exam: Present: rubs, +S1, +S2 - GI/Abdominal GI/Abdominal exam: Present: diminished bowel sounds, distended, soft, no peritoneal signs. Absent: guarding Additional comments: Fluid felt b/l - Extremities Exam Extremities exam: Present: normal capillary refill, normal inspection, warm - Neurological Exam Neurological exam: Present: no focal deficits Additional comments: choreoform movements - Psychiatric Psychiatric exam: Present: agitated - Skin Skin exam: Present: dry, intact, warm Internal Med - H&P Results - Labs CBC & Chem 7: 01/26/18 00:22 01/26/18 00:22 Labs: Short CBC 01/26/18 Range/Units 00:22 WBC 9.2 (4.3-11.1) K/mcL Hgb 7.6 L (11.5-15.4) g/dL Hct 23.9 L (35.3-44.9) % Plt Count 415 H (140-400) K/mcL Neutrophils # 7.7 (1.6-8.9) K/mcL BMP 01/26/18 00:22 Sodium 140 Potassium 3.8 Chloride 106 Carbon Dioxide 26 BUN 17 Creatinine 1.14 Glucose 111 H Calcium 8.4 L Liver Function 01/26/18 Range/Units 00:22 Total Bilirubin 0.3 (0.3-1.0) mg/dL AST 12 L (13-39) Units/L ALT < 3 L (7-52) Units/L Alkaline Phosphatase 101 (34-104) Units/L Albumin 3.1 L (3.5-5.7) g/dL - Impressions ITS Impressions Head CT 01/26/18 00:25 IMPRESSION: No acute intracranial abnormality. D/ / Jackelin Martínez Cha, MD / Jackelin Martínez Cha, MD Interpreting Provider: Jackelin Martínez Cha, MD Abdomen/Pelvis CT 01/26/18 23:52 IMPRESSION: There is a large cystic mass measuring up to 8.45 cm in the posterior right pelvis that may be of right ovarian origin. The margins of the mass are not well visualized due to the lack of IV contrast and surrounding low-attenuation ascites. Cystic neoplasm must be considered and follow-up pelvic ultrasound would be helpful in further characterizing this lesion. There is infiltration of omental and mesenteric fat. While this may be secondary to the ascites, tumor infiltration is not excluded. Moderate to large right pleural effusion causing right lower lobe compressive atelectasis. Small left pleural effusion. Moderate-sized hiatal hernia. In addition to a pelvic ultrasound, image guided right thoracentesis and paracentesis would be helpful in further evaluation. D/ / Simone Rodríguez MD / Simone Rodríguez MD Interpreting Provider: Simone Rodríguez MD - Assessment and plan (1) Pelvic mass Current Visit: Yes Status: Acute Assessment and plan: 82 YO F with right pelvic mass 8.5cm seen on abdominal CT - possibly R ovarian mass - Outpatient [employer] referral for possible surgical removal (2) GI bleed Current Visit: Yes Status: Acute Assessment and plan: Patient has 1 week history of hematemsis and melena. Possible hematuria and fecal material in urine, however no urinalysis. Patient had Hgb 7 at ED and was transfused 2L of PRBCs. - Follow up CBC - Follow up urinalysis - GI consult placed - call not completed Qualifiers: Qualified Code(s): K92.2 - Gastrointestinal hemorrhage, unspecified (3) Pleural effusion Current Visit: Yes Status: Acute Assessment and plan: CT showed R sided pleural effusion causing RLL compressive atelectasis. Patient complaining of SOB. - Consult IR to drain (4) DVT prophylaxis Current Visit: No Status: Acute Assessment and plan: Patient with GI bleed - compression stockings for DVT PPX at this time. - Time Spent With Patient Total time spent is greater than 50% in coordination of care (as documented) at patient's floor/unit and/or counseling patient: <Davi Bose - Last Filed: 01/26/18 07:36> Date of Encounter: 01/26/18 Internal Medicine - H&P: HPI History of present illness: Ms. Rooney is a 82 year old female All Systems PM: A 10-system review of systems was performed and is negative for pertinent findings except as documented above in the HPI. - Constitutional Vitals: Temp Pulse Resp BP Pulse Ox 99.0 F 77 16 126/53 95 01/26/18 07:22 01/26/18 07:22 01/26/18 07:22 01/26/18 07:22 01/26/18 07:22 Internal Med - H&P Results - Labs CBC & Chem 7: 01/26/18 05:32 01/26/18 05:32 Labs: Short CBC 01/26/18 01/26/18 Range/Units 00:22 05:32 WBC 9.2 7.2 (4.3-11.1) K/mcL Hgb 7.6 L 6.9 L (11.5-15.4) g/dL Hct 23.9 L 22.0 L (35.3-44.9) % Plt Count 415 H 387 (140-400) K/mcL Neutrophils # 7.7 5.8 (1.6-8.9) K/mcL BMP 01/26/18 01/26/18 00:22 05:32 Sodium 140 139 Potassium 3.8 3.9 Chloride 106 110 H Carbon Dioxide 26 23 BUN 17 16 Creatinine 1.14 1.07 Glucose 111 H 103 Calcium 8.4 L 8.3 L Liver Function 01/26/18 Range/Units 00:22 Total Bilirubin 0.3 (0.3-1.0) mg/dL AST 12 L (13-39) Units/L ALT < 3 L (7-52) Units/L Alkaline Phosphatase 101 (34-104) Units/L Albumin 3.1 L (3.5-5.7) g/dL - Impressions ITS Impressions Head CT 01/26/18 00:25 IMPRESSION: No acute intracranial abnormality. D/ / Jackelin Martínez Cha, MD / Jackelin Martínez Cha, MD Interpreting Provider: Jackelin Martínez Cha, MD Abdomen/Pelvis CT 01/26/18 23:52 IMPRESSION: There is a large cystic mass measuring up to 8.45 cm in the posterior right pelvis that may be of right ovarian origin. The margins of the mass are not well visualized due to the lack of IV contrast and surrounding low-attenuation ascites. Cystic neoplasm must be considered and follow-up pelvic ultrasound would be helpful in further characterizing this lesion. There is infiltration of omental and mesenteric fat. While this may be secondary to the ascites, tumor infiltration is not excluded. Moderate to large right pleural effusion causing right lower lobe compressive atelectasis. Small left pleural effusion. Moderate-sized hiatal hernia. In addition to a pelvic ultrasound, image guided right thoracentesis and paracentesis would be helpful in further evaluation. D/ / Simone Rodríguez MD / Simone Rodríguez MD Interpreting Provider: Simone Rodríguez MD - Time Spent With Patient Total time spent is greater than 50% in coordination of care (as documented) at patient's floor/unit and/or counseling patient: - Attending Attestation I saw and evaluated the patient. I reviewed the residents note, performed my own physical examination and agree with findings and plan as documented in the residents note. Patient seen and examined on 01/26/18. Patient with history of Parkinson's and large goiter presented to the ER with coffee ground emesis, found to have anemia, large abdominal mass and large right pleural effusion. She states that she has had the emesis for about 1 week, denies having this in the past. She also has had some falls as well. Will follow up with repeat CBC after 2 pRBCs, consult GI, consult IR for right pleural effusion and have PT evaluate her regarding her falls. Patient was on hospice prior to her arrival however she wanted to be full code upon arrival here. She had previously not known about an abdominal mass, and this will likely require outpatient follow up with OBGYN and/or oncology.
[2018-01-26] MEDS: Pantoprazole 40 MG in 0.9 % Sodium Chloride Mini Bag 100 ML IVC SCH ×4 (04:29→20:03)
[2018-01-26] MEDS ORDERED: Naloxone 0.4 MG/ML INJ IVP PRN (05:14)
[2018-01-26] MEDS ORDERED: 0.9 % Sodium Chloride 250 ML ONE (05:20)
[2018-01-26 05:56] LABS: Basophils % 0.1 %; Eosinophils # 0.1 K/mcL (0.0-0.6); Eosinophils % 0.8 %; Hemoglobin 6.9 g/dL (11.5-15.4); Immature Granulocytes % 0.4 % (0-4); Lymphocytes # 0.6 K/mcL (0.6-4.6); Lymphocytes % 8.4 %; Mean Corpuscular HGB Conc 31.4 g/dL (31.6-35.5); Mean Corpuscular Hemoglobin 26.5 pg (28.0-33.3); Mean Corpuscular Volume 84.6 fL (83.0-100.0); Mean Platelet Volume 9.8 fL (9.4-12.4); Monocytes # 0.6 K/mcL (0.0-1.3); Monocytes % 8.8 %; Neutrophils # 5.8 K/mcL (1.6-8.9); Platelet Count 387 K/mcL (140-400); Red Cell Distribution Width 14.2 % (11.5-14.5); Segmented Neutrophils % 81.5 %
[2018-01-26 06:12] LABS: Calcium 8.3 mg/dL (8.6-10.3); Potassium 3.9 mEq/L (3.5-5.1)
--- NOTE | 2018-01-26 08:06 | Internal Med Progress Note ---
<Estela Bui - Last Filed: 01/26/18 10:03> Hospitalist Progress Note - Encounter Date of Encounter: 01/26/18 Time of Encounter: 10:00 - Exam Vitals: Temp Pulse Resp BP Pulse Ox 99.0 F 77 16 126/53 95 01/26/18 07:22 01/26/18 07:22 01/26/18 07:22 01/26/18 07:22 01/26/18 07:22 - Assessment and Plan (1) DVT prophylaxis Current Visit: No Status: Acute (2) GI bleed Current Visit: Yes Status: Acute (3) Pelvic mass Current Visit: Yes Status: Acute (4) Pleural effusion Current Visit: Yes Status: Acute - Time Spent with Patient Total time spent is greater than 50% in coordination of care (as documented) at patient's floor/unit and/or counseling patient: Internal Medicine: Result - Labs CBC & Chem 7: 01/26/18 05:32 01/26/18 05:32 Labs: Short CBC 01/26/18 01/26/18 Range/Units 00:22 05:32 WBC 9.2 7.2 (4.3-11.1) K/mcL Hgb 7.6 L 6.9 L (11.5-15.4) g/dL Hct 23.9 L 22.0 L (35.3-44.9) % Plt Count 415 H 387 (140-400) K/mcL Neutrophils # 7.7 5.8 (1.6-8.9) K/mcL BMP 01/26/18 01/26/18 00:22 05:32 Sodium 140 139 Potassium 3.8 3.9 Chloride 106 110 H Carbon Dioxide 26 23 BUN 17 16 Creatinine 1.14 1.07 Glucose 111 H 103 Calcium 8.4 L 8.3 L Liver Function 01/26/18 Range/Units 00:22 Total Bilirubin 0.3 (0.3-1.0) mg/dL AST 12 L (13-39) Units/L ALT < 3 L (7-52) Units/L Alkaline Phosphatase 101 (34-104) Units/L Albumin 3.1 L (3.5-5.7) g/dL - Impressions Impressions Head CT 01/26/18 00:25 IMPRESSION: No acute intracranial abnormality. D/ / Jackelin Martínez Cha, MD / Jackelin Martínez Cha, MD Interpreting Provider: Jackelin Martínez Cha, MD Abdomen/Pelvis CT 01/26/18 23:52 IMPRESSION: There is a large cystic mass measuring up to 8.45 cm in the posterior right pelvis that may be of right ovarian origin. The margins of the mass are not well visualized due to the lack of IV contrast and surrounding low-attenuation ascites. Cystic neoplasm must be considered and follow-up pelvic ultrasound would be helpful in further characterizing this lesion. There is infiltration of omental and mesenteric fat. While this may be secondary to the ascites, tumor infiltration is not excluded. Moderate to large right pleural effusion causing right lower lobe compressive atelectasis. Small left pleural effusion. Moderate-sized hiatal hernia. In addition to a pelvic ultrasound, image guided right thoracentesis and paracentesis would be helpful in further evaluation. D/ / Simone Rodríguez MD / Simone Rodríguez MD Interpreting Provider: Simone Rodríguez MD Consult Discharge Plan - Plan Referrals: NONE,PCP [Primary Care Provider] - - Attending Attestation I saw evaluated and examined this patient and my medical decision-making was reviewed with the Resident Physician, James Rivera. I agree with the documented findings, disposition and treatment plan as described except to any changes set forth below. We independently had [id number] contact with the patient. Patient is lying down in bed. Discussed plan of care with her. She does not want any aggressive procedures. Refusing EGD at this time. She wishes to be DNR/DNI. We will make the necessary changes. At this time, she is okay with medical management but just wants to be left alone for now. We will consult palliative care. <James Rivera - Last Filed: 01/26/18 11:20> Hospitalist Progress Note - Encounter Date of Encounter: 01/26/18 - Subjective Interval History: Patient was seen and examined at bedside, patient is lying in bed appears to be comfortable with her eye shut. Patient is responsive and alert when questioning is started. Patient denies any current or recent bloody stool or vomit since admission. Patient currently denies any nausea. She does state she has diffuse abdominal tenderness that is greatest with palpation. She denies any chest pain. She says she has chronic source of breath and this is unchanged from baseline. Patient does make multiple remarks that she does not receive surgical interventions for recurrent etiology of bloody stools and bloody vomit. - Exam Vitals: Temp Pulse Resp BP Pulse Ox 99.0 F 77 16 126/53 95 01/26/18 07:22 01/26/18 07:22 01/26/18 07:22 01/26/18 07:22 01/26/18 07:22 Exam: Gen. appearance: Patient is laying flat in bed, eyes are shut, does become alert when questioned. Appears to be in mild distress with any palpation to the abdomen patient is alert and oriented times person place and time, indiscretions or probably a HEENT: Atraumatic, normocephalic, extraocular motors appear to be intact, normal appearance conductive appears to be slightly pallor, no obvious blood is appreciated within the mouth or throat, goiter to the neck region Respiratory: Diffuse wheezing throughout, decreased breath sounds throughout the right lower lung, as well as the left lower lung Chest: Is to be regular rate and rhythm Abdomen: Diminished rales sounds throughout is distended, no guarding or rebound, is moderately tender with diffuse palpation Extremities: Normal cap refill, normal inspection, warm, no lower extrude a swelling or edema Neurologic: Sensation intact throughout Psychiatric: Appears to be slightly agitated with questioning . - Assessment and Plan (1) GI bleed Current Visit: Yes Status: Acute Assessment and Plan: Patient presented to the emergency department with hematemesis as well as me vida, no continued episodes since admission CT of the abdomen and pelvis revealed a right pelvic mass measuring 8.5 cm possibly right ovarian mass All emergency department and admission hemoglobin was noted to be 7 and was transfused with 2 units of packed red blood cells at that point in time. This was not done until admission. Repeat hemoglobin was not done prior to transfusion which showed hemoglobin to be at 6.9 Plan We will get follow-up hemoglobin and CBC study Follow-up with urinalysis Consult to general surgery for acute GI bleed was placed, Gen. surgery did see patient: Patient adamantly refused any surgical intervention at this point in time, we will hold off any surgical intervention and continue to follow if needed Consult to palliative care (2) Anemia Current Visit: Yes Status: Acute Assessment and Plan: Patient presented with multiple episodes of hematemesis and melena reported to be ongoing for 1 week Patient was found to have hemoglobin of 7 in the emergency department, on admission patient was given 2 units of packed red blood cells Repeat hemoglobin that was performed was prior to complete transfusion, was 6.9 Plan We will continue to follow with CBC and monitor hemoglobin levels. Patient has adamantly refused any further surgical intervention by way of EGD Possibly also due to dehydration, we will continue to replace with slight fluids at this point in time and as long as tolerated we will advance diet (3) Ovarian mass, right Current Visit: Yes Status: Acute Assessment and Plan: Patient had CT of the abdomen and pelvis performed in the emergency department which showed a 8.5 cm pelvic mass possibly on the right ovary We will continue to monitor for symptoms (4) Pleural effusion Current Visit: Yes Status: Acute Assessment and Plan: CT showed right-sided pleural effusion causing a right lower lobe compressive atelectasis patient complaining of slight shortness of breath however appears to be at baseline In further investigation is appears to be chronic in nature, patient currently not complaining of increasing shortness of breath or chest pain Plan Consult pulmonology: Per pulmonology right sided pleural effusion seems to be present for the at least the last year, they are suspecting that this is long- standing CHF patient is in no acute pulmonary distress. Patient will continue to titrate with nasal cannula oxygen as needed. Patient refusing any surgical intervention at this point in time. Continue nasal cannula oxygen as needed per patient with titration Continue with pulse ox We will continue to monitor patient's symptoms (5) Hypertension Current Visit: No Status: Chronic Assessment and Plan: We will continue to monitor patient's blood pressure Plan We will reset all home medications this point in time Patient appears to have stable blood pressure (6) Stage III chronic kidney disease Current Visit: No Status: Chronic Assessment and Plan: Patient with history of chronic disease, creatinine currently 1.07 appears to be stable We will continue to monitor DVT Prophylaxis: Ovals off any on any DVT prophylaxis at this point in time given bleed - Time Spent with Patient Total time spent is greater than 50% in coordination of care (as documented) at patient's floor/unit and/or counseling patient: Internal Medicine: Result - Labs CBC & Chem 7: 01/26/18 05:32 01/26/18 05:32 Labs: Short CBC 01/26/18 01/26/18 Range/Units 00:22 05:32 WBC 9.2 7.2 (4.3-11.1) K/mcL Hgb 7.6 L 6.9 L (11.5-15.4) g/dL Hct 23.9 L 22.0 L (35.3-44.9) % Plt Count 415 H 387 (140-400) K/mcL Neutrophils # 7.7 5.8 (1.6-8.9) K/mcL BMP 01/26/18 01/26/18 00:22 05:32 Sodium 140 139 Potassium 3.8 3.9 Chloride 106 110 H Carbon Dioxide 26 23 BUN 17 16 Creatinine 1.14 1.07 Glucose 111 H 103 Calcium 8.4 L 8.3 L Liver Function 01/26/18 Range/Units 00:22 Total Bilirubin 0.3 (0.3-1.0) mg/dL AST 12 L (13-39) Units/L ALT < 3 L (7-52) Units/L Alkaline Phosphatase 101 (34-104) Units/L Albumin 3.1 L (3.5-5.7) g/dL - Impressions Impressions Head CT 01/26/18 00:25 IMPRESSION: No acute intracranial abnormality. D/ / Jackelin Martínez Cha, MD / Jackelin Martínez Cha, MD Interpreting Provider: Jackelin Martínez Cha, MD Abdomen/Pelvis CT 01/26/18 23:52 IMPRESSION: There is a large cystic mass measuring up to 8.45 cm in the posterior right pelvis that may be of right ovarian origin. The margins of the mass are not well visualized due to the lack of IV contrast and surrounding low-attenuation ascites. Cystic neoplasm must be considered and follow-up pelvic ultrasound would be helpful in further characterizing this lesion. There is infiltration of omental and mesenteric fat. While this may be secondary to the ascites, tumor infiltration is not excluded. Moderate to large right pleural effusion causing right lower lobe compressive atelectasis. Small left pleural effusion. Moderate-sized hiatal hernia. In addition to a pelvic ultrasound, image guided right thoracentesis and paracentesis would be helpful in further evaluation. D/ / Simone Rodríguez MD / Simone Rodríguez MD Interpreting Provider: Simone Rodríguez MD <Estela Bui - Last Filed: 01/26/18 10:03> (2) GI bleed Qualifiers: Qualified Code(s): K92.2 - Gastrointestinal hemorrhage, unspecified <James Rivera L - Last Filed: 01/26/18 11:20> (1) GI bleed Qualifiers: GI bleed type/associated pathology: unspecified gastrointestinal hemorrhage type Qualified Code(s): K92.2 - Gastrointestinal hemorrhage, unspecified (2) Anemia Qualifiers: Anemia type: other cause Other causes of anemia: other cause, not classified Qualified Code(s): D64.89 - Other specified anemias (5) Hypertension Qualifiers: Hypertension type: essential hypertension Qualified Code(s): I10 - Essential (primary) hypertension
--- NOTE | 2018-01-26 08:50 | Pulmonology Consult Note ---
Date of Encounter: 01/26/18 Time of Encounter: 08:50 Assessment and Plan (1) Pleural effusion Current Visit: Yes Status: Acute The patient has a moderate to large right-sided pleural effusion which has been present for at least the last year. I suspect this is related to her long- standing CHF. No acute pulmonary distress Abdomen requiring any supplemental oxygen at this time and would hold off on any intervention continue to monitor in the acute setting until GI bleeding is further evaluated and stabilized. If at some point during hospitalization patient becomes symptomatic then we could perform thoracentesis until then would continue to monitor. I doubt that the pelvic mass and the pleural effusion have a connection with each other given chronicity (2) Hematemesis Current Visit: Yes Status: Acute Concern for upper GI bleed she is on proton pump inhibitor and she is receiving blood transfusions plan to consult to Gen. surgery for possible endoscopy Qualifiers: Nausea presence: unspecified Qualified Code(s): K92.0 - Hematemesis (3) Goals of care, counseling/discussion Current Visit: Yes Status: Acute Palliative is met with the patient in the past poorly she was on hospice prior to coming to the hospital overall prognosis giving her frailty and multiple medical comorbidities is poor consider reconsultation with the palliative care t o determine level of aggressiveness of care with regards to endoscopy Thank you for this consultation please call with questions (4) (HFpEF) heart failure with preserved ejection fraction Current Visit: Yes Status: Acute Would have very cautious with administration of blood products would hold any infusion of crystalloid at this time may need diuresis in between administration of blood products further management per primary care team History of Present Illness Consult date: 01/26/18 Requesting physician: Estela Bui Reason for consult: pleural effusion Chief complaint: Coffee Ground Emesis History of present illness: This is a pleasant 82-year-old woman past medical history of CHF and goiter she also has long-standing Parkinson's disease who presented to the ED from [facility] for vomiting up coffee-ground emesis. She has been complaining of diffuse abdominal tenderness and multiple episodes of coffee-ground emesis. I barely patient was on hospice care when she came to the ED from the [facility] facility. In the ED a CT scan of the abdomen was performed which was notable for a moderate to large right-sided pleural effusion and pulmonary was consulted for further evaluation of this. If long nonsmoker with no significant pulmonary history except for CHF. She denies any complaints today says her breathing is "off and on" but not any worse and were and it typically is. Past Med Surg Social Fam HX - Past Medical History Medical history: hypertension, thyroid disease, other Additional medical history: heart murmur, GERD Psychiatric history: no psych history - Social History Smoking Status: Never smoker Smokeless Tobacco Status: No Alcohol use: none Drug use: none - Family History Mother Living Status: Medications and Allergies Amlodipine Besylate 10 mg PO DAILY 08/31/16 [History] Aspirin Enteric Coated [Aspirin EC] 81 mg PO DAILY 08/31/16 [History] Ca/D3/Mag#11/Zinc/Vacuum Drier Operator/Wing/Bor [Caltrate 600+D Plus Tablet] 1 each PO DAILY 08/31/16 [History] Lansoprazole [Prevacid] 15 mg PO DAILY 08/31/16 [History] Levothyroxine [Synthroid] 25 mcg PO 0630 08/31/16 [History] Loratadine [Claritin] 10 mg PO DAILY PRN 08/31/16 [History] Bath-3/Dha/Epa/Fish Oil [Fish Oil 1,000 mg Softgel] 1,000 mg PO DAILY 08/31/16 [History] hydrALAZINE [HydrALAZINE] 25 mg PO BID 08/31/16 [History] hydrOXYzine HCl [Hydroxyzine HCl] 25 mg PO HS 08/31/16 [History] Carbidopa/Levodopa/Entacapone [Stalevo 200 Tablet] 1 tab PO TID 07/20/17 [History] GuaiFENesin/Dextromethorphan [Mucinex Dm] 1 tab PO BID 07/20/17 [History] Metoprolol Succinate [Toprol Xl] 100 mg PO DAILY 07/20/17 [History] Polyethylene Glycol 3350 [MiraLAX Powder Bulk 17.9 Oz] 1 scoop PO DAILY 07/20/17 [History] Sertraline [Zoloft] 25 mg PO DAILY 07/20/17 [History] clonazePAM [Klonopin] 0.5 mg PO HS 07/20/17 [History] Allergy/AdvReac Type Severity Reaction Status Date / Time No Known Allergies Allergy Verified 08/31/16 17:59 All Systems: The remainder of the systems were reviewed and are negative Physical Examination Vital Signs: Vital Signs, Last 4 Hours Temp Pulse Resp BP Pulse Ox 01/26/18 07:22 99.0 F 77 16 126/53 95 01/26/18 06:03 99.1 F 77 18 105/49 01/26/18 05:48 99.2 F 78 18 122/66 General appearance: other (Frail chronically ill-appearing pale elderly woman) Eyes: nonicteric ENT: oropharynx dry, other (Goiter present) Neck: supple Effort: normal Auscultation: left: clear, right: diminished breath sounds Cardiovascular: regular rate and rhythm Gastrointestinal: soft, tender (Mild tenderness to palpation without rigidity or rebound) Integumentary: normal normal mental status, non-focal exam depressed Results - Laboratory Findings CBC and BMP: 01/26/18 05:32 01/26/18 05:32 Abnormal lab findings: Abnormal lab results RBC 2.60 M/mcL (3.82-4.97) L 01/26/18 05:32 Hgb 6.9 g/dL (11.5-15.4) L 01/26/18 05:32 Hct 22.0 % (35.3-44.9) L 01/26/18 05:32 MCH 26.5 pg (28.0-33.3) L 01/26/18 05:32 MCHC 31.4 g/dL (31.6-35.5) L 01/26/18 05:32 Chloride 110 mEq/L (98-107) H 01/26/18 05:32 Est GFR ( Amer) 59 (> 60) L 01/26/18 05:32 Est GFR (Non-Af Amer) 49 (> 60) L 01/26/18 05:32 Calcium 8.3 mg/dL (8.6-10.3) L 01/26/18 05:32 AST 12 Units/L (13-39) L 01/26/18 00:22 ALT < 3 Units/L (7-52) L 01/26/18 00:22 Serum Total Protein 5.2 g/dL (6.4-8.9) L 01/26/18 00:22 Albumin 3.1 g/dL (3.5-5.7) L 01/26/18 00:22 Globulin 2.1 g/dL (2.4-3.5) L 01/26/18 00:22 Lipase 10 Units/L (11-82) L 01/26/18 00:22 - Diagnostic Findings Chest x-ray: report reviewed, image reviewed CT scan - chest: report reviewed, image reviewed - Clinical Findings Intake & Output: Intake & Output 01/25/18 01/26/18 01/26/18 23:59 07:59 15:59 Intake Total 330 / 330 Balance 330 / 330 Weight 49.555 kg 47.7 kg Consult Discharge Plan - Plan Referrals: NONE,PCP [Primary Care Provider] -
--- NOTE | 2018-01-26 10:10 | Event Note ---
Date of Encounter: 01/26/18 Time of Encounter: 10:06 Pt seen and examined for surgical consult regarding GI bleed. Per record review she has had dark BMs, but patient denies this stating, "no its just hard for me to make bowel movements." Reviewed extensively with patient that possibility of GI bleed existed with her reports of "coffee ground vomit," and that an upper endoscopy would be recommended to evaluate. Reviewed the recommendations and risk of endoscopy. Patient adamantly refuses any further treatment or testing. I did explicitly review that if she had a G.I. bleed present, and was unable to become stabilized or stop the G.I. bleed that it could progressed to . Patient stated "I know." Reviewed with Dr. Bui. Of note her code status has been changed to a DNR CCA do not intubate. Surgery will sign off at this time. Thank you for allowing us to participate in Miss Rooney's
[2018-01-26 10:31] LABS: INR 1.1; Prothrombin Time 12.5 Seconds (9.4-12.1)
[2018-01-26 10:34] LABS: Activated Partial Thrombo Time 33.3 Seconds (26.0-36.0)
[2018-01-26] MEDS ORDERED: Loratadine 10 MG TABLET PO PRN (10:52)
--- NOTE | 2018-01-26 11:01 | Internal Med Progress Note ---
Hospitalist Progress Note - Encounter Date of Encounter: 01/26/18 Time of Encounter: 10:59 - Subjective Interval History: Patient was seen and examined at bedside, patient currently is resting laying in bed. Patient denies any current complaints states that she has diffuse abdominal pain however denies any current nausea or recent vomiting episodes sin ce admission. She denies any current bloody bowel movements since admission. Patient states that she has generalized shortness of breath, however is unchanged from her baseline. Patient denies any chest pain, blood in her urine or urinary symptoms. In conversation, patient states that she does not want to receive any further surgical interventions or treatment. - Exam Vitals: Temp Pulse Resp BP Pulse Ox 98.4 F 96 17 147/71 91 01/26/18 09:52 01/26/18 09:52 01/26/18 09:52 01/26/18 09:52 01/26/18 09:52 Exam: . - Assessment and Plan (1) Stage III chronic kidney disease Current Visit: No Status: Chronic (2) Anemia Current Visit: Yes Status: Acute (3) GI bleed Current Visit: Yes Status: Acute (4) Pelvic mass Current Visit: Yes Status: Acute (5) Pleural effusion Current Visit: Yes Status: Acute (6) Congestive heart failure Current Visit: No Status: Chronic (7) Hypertension Current Visit: No Status: Chronic (8) Goiter Current Visit: Yes Status: Chronic - Time Spent with Patient Total time spent is greater than 50% in coordination of care (as documented) at patient's floor/unit and/or counseling patient: Internal Medicine: Result - Labs CBC & Chem 7: 01/26/18 05:32 01/26/18 05:32 Labs: Short CBC 01/26/18 01/26/18 Range/Units 00:22 05:32 WBC 9.2 7.2 (4.3-11.1) K/mcL Hgb 7.6 L 6.9 L (11.5-15.4) g/dL Hct 23.9 L 22.0 L (35.3-44.9) % Plt Count 415 H 387 (140-400) K/mcL Neutrophils # 7.7 5.8 (1.6-8.9) K/mcL BMP 01/26/18 01/26/18 00:22 05:32 Sodium 140 139 Potassium 3.8 3.9 Chloride 106 110 H Carbon Dioxide 26 23 BUN 17 16 Creatinine 1.14 1.07 Glucose 111 H 103 Calcium 8.4 L 8.3 L Liver Function 01/26/18 Range/Units 00:22 Total Bilirubin 0.3 (0.3-1.0) mg/dL AST 12 L (13-39) Units/L ALT < 3 L (7-52) Units/L Alkaline Phosphatase 101 (34-104) Units/L Albumin 3.1 L (3.5-5.7) g/dL - ABG Interpretation ABG results: PT/INR, D-dimer PT 12.5 Seconds (9.4-12.1) H 01/26/18 10:01 - Impressions Impressions Head CT 01/26/18 00:25 IMPRESSION: No acute intracranial abnormality. D/ / Jackelin Martínez Cha, MD / Jackelin Martínez Cha, MD Interpreting Provider: Jackelin Martínez Cha, MD Abdomen/Pelvis CT 01/26/18 23:52 IMPRESSION: There is a large cystic mass measuring up to 8.45 cm in the posterior right pelvis that may be of right ovarian origin. The margins of the mass are not well visualized due to the lack of IV contrast and surrounding low-attenuation ascites. Cystic neoplasm must be considered and follow-up pelvic ultrasound would be helpful in further characterizing this lesion. There is infiltration of omental and mesenteric fat. While this may be secondary to the ascites, tumor infiltration is not excluded. Moderate to large right pleural effusion causing right lower lobe compressive atelectasis. Small left pleural effusion. Moderate-sized hiatal hernia. In addition to a pelvic ultrasound, image guided right thoracentesis and paracentesis would be helpful in further evaluation. D/ / Simone Rodríguez MD / Simone Rodríguez MD Interpreting Provider: Simone Rodríguez MD Consult Discharge Plan - Plan Referrals: NONE,PCP [Primary Care Provider] - (2) Anemia Qualifiers: Anemia type: other cause Other causes of anemia: other cause, not classified Qualified Code(s): D64.89 - Other specified anemias (3) GI bleed Qualifiers: Qualified Code(s): K92.2 - Gastrointestinal hemorrhage, unspecified (6) Congestive heart failure Qualifiers: Qualified Code(s): I50.9 - Heart failure, unspecified (7) Hypertension Qualifiers: Hypertension type: essential hypertension Qualified Code(s): I10 - Essential (primary) hypertension
[2018-01-26] MEDS: hydrOXYzine pamoate 25 MG CAPSULE PO SCH ×2 (11:42→21:53)
[2018-01-26] MEDS: clonazePAM 0.5 MG TABLET PO SCH ×2 (11:42→21:54)
[2018-01-26] MEDS: Metoprolol XL (24 HR) Succ 50 MG TAB.ER.24H PO SCH (11:52)
[2018-01-26] MEDS: GuaiFENesin/Dextromethorphan TABLET PO SCH ×2 (11:52→21:54)
[2018-01-26] MEDS: amLODIPine 5 MG TABLET PO SCH (11:52)
[2018-01-26] MEDS: Carbidopa/Levodopa 25/100 TABLET PO SCH ×3 (11:52→21:53)
[2018-01-26] MEDS: hydrALAZINE 25 MG TABLET PO SCH ×2 (11:53→21:56)
[2018-01-26 14:57] LABS: Hematocrit 33.8 % (35.3-44.9)
[2018-01-26 15:10] LABS: Hemoglobin 11.1 g/dL (11.5-15.4)
[2018-01-26] MEDS ORDERED: Ondansetron 4 MG/2 ML VIAL IVP PRN (18:11)
[2018-01-27] MEDS: Pantoprazole 40 MG in 0.9 % Sodium Chloride Mini Bag 100 ML IVC SCH ×6 (01:26→22:44)
[2018-01-27 05:39] LABS: Basophils % 0.4 %; Eosinophils # 0.2 K/mcL (0.0-0.6); Hematocrit 29.8 % (35.3-44.9); Hemoglobin 9.7 g/dL (11.5-15.4); Immature Granulocytes % 0.4 % (0-4); Lymphocytes # 0.6 K/mcL (0.6-4.6); Mean Corpuscular HGB Conc 32.6 g/dL (31.6-35.5); Mean Corpuscular Hemoglobin 27.2 pg (28.0-33.3); Mean Corpuscular Volume 83.5 fL (83.0-100.0); Mean Platelet Volume 9.5 fL (9.4-12.4); Monocytes # 0.6 K/mcL (0.0-1.3); Monocytes % 8.1 %; Neutrophils # 6.2 K/mcL (1.6-8.9); Platelet Count 336 K/mcL (140-400); Red Blood Count 3.57 M/mcL (3.82-4.97); Red Cell Distribution Width 14.6 % (11.5-14.5); Segmented Neutrophils % 81.1 %
[2018-01-27] MEDS: Levothyroxine 25 MCG TABLET PO SCH (05:42)
[2018-01-27 05:55] LABS: BUN/Creatinine Ratio 13 (6-26); Blood Urea Nitrogen 12 mg/dL (8-23); Calcium 8.1 mg/dL (8.6-10.3); Carbon Dioxide 23 mEq/L (23-29); Chloride 110 mEq/L (98-107); Glucose 88 mg/dL (70-105); Osmolality,Calculated 287 (280-300); Potassium 3.7 mEq/L (3.5-5.1); Sodium 139 mEq/L (136-145); eGFR For Non-African Americans 57 (> 60)
--- NOTE | 2018-01-27 07:45 | Internal Med Progress Note ---
<James Rivera - Last Filed: 01/27/18 11:28> Hospitalist Progress Note - Encounter Date of Encounter: 01/27/18 Time of Encounter: 09:50 - Subjective Interval History: Patient was seen and examined this morning. Patient is lying in bed, with her eyes open but states she does not feel like talking today. She will nod her head yes or no but will not speak. Patient denies any current complaints, she denies any nausea or vomiting. She denies any current chest pain, change in shortness of breath, abdominal pain or further vomiting or bloody bowel movements. It is noted, that she did not eat her breakfast this morning per n ursing in the room. - Exam Vitals: Temp Pulse Resp BP Pulse Ox 97.5 F L 73 18 132/69 94 01/27/18 07:34 01/27/18 07:34 01/27/18 07:34 01/27/18 07:34 01/27/18 07:34 Exam: Gen. appearance: Patient is laying flat in bed Her eyes are open, however she will only nod her head yes or no, appears in no apparent acute distress HEENT: Atraumatic, normocephalic, extraocular motors appear to be intact, normal appearance conductive appears to be slightly pallor, no obvious blood is appreciated within the mouth or throat, goiter to the neck region Respiratory: Decreased breath sounds throughout Chest: Regular rate and rhythm Abdomen: Slightly tender with palpation, no guarding or rebound Extremities: Normal cap refill, normal inspection, warm, no lower extremity swelling Neurologic: Sensation intact throughout Psychiatric: Appears to be slightly agitated with questioning - Assessment and Plan (1) GI bleed Current Visit: Yes Status: Acute Assessment and Plan: Patient presented to the emergency department with hematemesis as well as melena, no continued episodes since admission CT of the abdomen and pelvis revealed a right pelvic mass measuring 8.5 cm possibly right ovarian mass Patient had transfusion yesterday with repeat hemoglobin being 11.1, repeat hemoglobin today is 9.7. Plan Patient declining all surgical interventions at this time Palliative care has been consulted Per Palliative; POA will be in tomorrow morning, will discuss plan and goals of care at that time Will monitor CBC for tomorrow (2) Anemia Current Visit: Yes Status: Acute Assessment and Plan: Patient presented with multiple episodes of hematemesis and melena reported to be ongoing for 1 week Patient was found to have hemoglobin of 7 in the emergency department, on admission patient was given 2 units of packed red blood cells Repeat hemoglobin following transfusion was 11.1, today hemoglobin is 9.7 Plan No surgical intervention at this point in time given patient's wishes Palliative care has been consulted Possibly also due to dehydration, we will continue to replace with slight fluids at this point in time and as long as tolerated we will advance diet (3) Ovarian mass, right Current Visit: Yes Status: Acute Assessment and Plan: Patient had CT of the abdomen and pelvis performed in the emergency department which showed a 8.5 cm pelvic mass possibly on the right ovary We will continue to monitor for symptom Pain management as needed (4) Pleural effusion Current Visit: Yes Status: Acute Assessment and Plan: CT showed right-sided pleural effusion causing a right lower lobe compressive atelectasis patient complaining of slight shortness of breath however appears to be at baseline In further investigation is appears to be chronic in nature, patient currently not complaining of increasing shortness of breath or chest pain Plan Consult pulmonology: Per pulmonology right sided pleural effusion seems to be p resent for the at least the last year, they are suspecting that this is long- standing CHF patient is in no acute pulmonary distress. Patient will continue to titrate with nasal cannula oxygen as needed. Patient refusing any surgical intervention at this point in time. Continue nasal cannula oxygen as needed per patient with titration Continue with pulse ox We will continue to monitor patient's symptoms (5) Hypertension Current Visit: No Status: Chronic Assessment and Plan: Continue home medications (6) Stage III chronic kidney disease Current Visit: No Status: Chronic Assessment and Plan: Creatinine at 0.94 this morning Continue to monitor DVT Prophylaxis: Hold off any on any DVT prophylaxis at this point in time given bleed - Time Spent with Patient Total time spent is greater than 50% in coordination of care (as documented) at patient's floor/unit and/or counseling patient: less than 15 minutes Plan of Care Discussed with: patient Internal Medicine: Result - Labs CBC & Chem 7: 01/27/18 05:21 01/27/18 05:21 Labs: Short CBC 01/26/18 01/27/18 Range/Units 14:40 05:21 WBC 7.6 (4.3-11.1) K/mcL Hgb 11.1 L D 9.7 L (11.5-15.4) g/dL Hct 33.8 L 29.8 L (35.3-44.9) % Plt Count 336 (140-400) K/mcL Neutrophils # 6.2 (1.6-8.9) K/mcL [facility] 01/27/18 05:21 Sodium 139 Potassium 3.7 Chloride 110 H Carbon Dioxide 23 BUN 12 Creatinine 0.94 Glucose 88 Calcium 8.1 L - ABG Interpretation ABG results: PT/INR, D-dimer PT 12.5 Seconds (9.4-12.1) H 01/26/18 10:01 Consult Discharge Plan - Plan Referrals: NONE,PCP [Primary Care Provider] - <Estela Bui - Last Filed: 01/27/18 13:43> Hospitalist Progress Note - Encounter Date of Encounter: 01/27/18 Time of Encounter: 13:25 - Exam Vitals: Temp Pulse Resp BP Pulse Ox 97.8 F 70 16 137/58 98 01/27/18 12:16 01/27/18 12:16 01/27/18 12:16 01/27/18 12:16 01/27/18 12:16 - Assessment and Plan (1) DVT prophylaxis Current Visit: No Status: Acute (2) GI bleed Current Visit: Yes Status: Acute (3) Pelvic mass Current Visit: Yes Status: Acute (4) Pleural effusion Current Visit: Yes Status: Acute - Time Spent with Patient Total time spent is greater than 50% in coordination of care (as documented) at patient's floor/unit and/or counseling patient: Internal Medicine: Result - Labs CBC & Chem 7: 01/27/18 05:21 01/27/18 05:21 Labs: Short CBC 01/26/18 01/27/18 Range/Units 14:40 05:21 WBC 7.6 (4.3-11.1) K/mcL Hgb 11.1 L D 9.7 L (11.5-15.4) g/dL Hct 33.8 L 29.8 L (35.3-44.9) % Plt Count 336 (140-400) K/mcL Neutrophils # 6.2 (1.6-8.9) K/mcL [facility] 01/27/18 05:21 Sodium 139 Potassium 3.7 Chloride 110 H Carbon Dioxide 23 BUN 12 Creatinine 0.94 Glucose 88 Calcium 8.1 L - ABG Interpretation ABG results: PT/INR, D-dimer PT 12.5 Seconds (9.4-12.1) H 01/26/18 10:01 - Attending Attestation I saw evaluated and examined this patient and my medical decision-making was reviewed with the Resident Physician, James Rivera. I agree with the documented findings, disposition and treatment plan as described except to any changes set forth below. We independently had [id number] contact with the patient. Patient was asleep and evaluated earlier today. She awakes easily. Denies any new complaints. No nausea or vomiting. No chest pain. No abdominal pain. No trouble breathing. On exam, patient is thin built, pallor present. Mucous membranes are moist. S1 and S2 are normal. Decreased breath sounds at right base. No pedal edema. GI bleed: Patient does not want further workup at this time. Hemoglobin levels at 9.7 today. Continue PPI. Will switch it to scheduled dosing instead of a drip. Right-sided pleural effusion: Chronic in nature. Pulmonology consult appreciated. No indication for urgent paracentesis. Anemia: Possibly due to GI bleed. Status post 2 units PRBC. Hemoglobin 9.7 today. Right-sided ovarian mass: Consulted palliative care as patient did not want fur ther workup. We will continue to treat symptoms. Chronic kidney disease stage III: Renal function is stable. DVT prophylaxis with EPCDs <James Rivera - Last Filed: 01/27/18 11:28> (1) GI bleed Qualifiers: GI bleed type/associated pathology: unspecified gastrointestinal hemorrhage type Qualified Code(s): K92.2 - Gastrointestinal hemorrhage, unspecified (2) Anemia Qualifiers: Anemia type: other cause Other causes of anemia: other cause, not classified Qualified Code(s): D64.89 - Other specified anemias (5) Hypertension Qualifiers: Hypertension type: essential hypertension Qualified Code(s): I10 - Essential (primary) hypertension <Estela Bui - Last Filed: 01/27/18 13:43> (2) GI bleed Qualifiers: GI bleed type/associated pathology: unspecified gastrointestinal hemorrhage type Qualified Code(s): K92.2 - Gastrointestinal hemorrhage, unspecified
[2018-01-27] MEDS: Metoprolol XL (24 HR) Succ 50 MG TAB.ER.24H PO SCH (09:27)
[2018-01-27] MEDS: Carbidopa/Levodopa 25/100 TABLET PO SCH ×3 (09:27→19:59)
[2018-01-27] MEDS: hydrALAZINE 25 MG TABLET PO SCH ×2 (09:28→19:58)
[2018-01-27] MEDS: amLODIPine 5 MG TABLET PO SCH (09:28)
[2018-01-27] MEDS: GuaiFENesin/Dextromethorphan TABLET PO SCH ×2 (09:28→19:58)
--- NOTE | 2018-01-27 12:41 | Palliative - Consult Note ---
Date of Encounter: 01/27/18 Time of Encounter: 10:25 - Assessment and Plan (1) Generalized pain Current Visit: No Status: Acute Assessment and plan: Will reorder her Roxanol as at [facility] and monitor. Titrate as needed. (2) Goals of care, counseling/discussion Current Visit: Yes Status: Acute Assessment and plan: D/W patient granddaughter Shalini Kraus ([id number]). Granddaughter states that patient has been having periods where she is lucid, but then will get very confused and hallucinate. States eating very little, and dinner may consist of "one tater tot". States just enrolled in hospice, and she thinks pt was probably confused in ER when she told them she "was young and wanted everything done". Discussed further goals of care and continued blood draws/transfusions. Peggy desires to have hgb drawn in am, and would like to meet with palliative tomorrow at 1100 to discuss results and further management. She is leaning toward no further draws, but wants some time to consider. Also discussed current code status and difference with current code status and DNRCC. She will likely transition to DNRCC and another state form will need completed. Will f/u in am. Dr. Rivera notified of the conversation. (3) Bilateral pleural effusion Current Visit: No Status: Acute (4) Multinodular goiter Current Visit: No Status: Chronic (5) COPD with acute exacerbation Current Visit: No Status: Acute (6) Ovarian mass, right Current Visit: Yes Status: Acute Assessment and plan: Family aware of CT findings. No further workup or biopsy desired (7) GI bleed Current Visit: Yes Status: Acute Assessment and plan: transfused yesterday. Hgb 11.1 yesterday. Down to 9.7 this am. Qualifiers: GI bleed type/associated pathology: unspecified gastrointestinal hemorrhage type Qualified Code(s): K92.2 - Gastrointestinal hemorrhage, unspecified Palliative-CN HPI - Data of Consult Consult date: 01/27/18 Requesting Physician: Estela Bui MD Primary Care Provider: PCP NONE - Consult Narrative Palliative Care/Comfort Measures: Palliative care History of present illness: Ms. Rooney is a 82 year old female who is resident of [facility] actually known to me from previous visit over a yr ago. She had coffee-ground emesis, tarry stools and abdominal pain. She presented to ER, hgb 7.6 which ultimately dropped to 6.9 and she was transfused. She was enrolled with [facility] last Tu. Apparently, pt mental status waxes and wanes, and originally she stated she wanted treatment, but then later yesterday, refused any workup or diagnostic testing related to her bleeding. She was agreeable to transfusion. She history of HTN, thyroid disease, goiter, CHF, CKD stage III. Other testing in ED demonstrated a large cystic mass in the posterior pelvis possible ovarian in origin. In addition there is infiltration of omentum and mesentery. She has moderate to large pleural effusion causing RLL compressive atelectasis. Upon my visit, she is in position in bed, and will not verbalize much with me. States wants me to "let her rest". Denies pain or discomfort. No family at bedside. CC: Estela Bui MD - Time Spent with Patient Time: Total time spent is greater than 50% in coordination of care (as documented) at patient's floor/unit and/or counseling patient: Time with patient: 45 minutes Past Med Surg Social Fam HX - Past Medical History Medical history: hypertension, thyroid disease, other Additional medical history: heart murmur, GERD Psychiatric history: no psych history - Social History Smoking Status: Never smoker Smokeless Tobacco Status: No Alcohol use: none Drug use: none - Family History Mother Living Status: Medications and Allergies Amlodipine Besylate 10 mg PO DAILY 08/31/16 [History] Ca/D3/Mag#11/Zinc/Air Analysis Engineering Technician/Wing/Bor [Caltrate 600+D Plus Tablet] 1 each PO DAILY 08/31/16 [History] Lansoprazole [Prevacid] 15 mg PO DAILY 08/31/16 [History] Levothyroxine [Synthroid] 25 mcg PO 0630 08/31/16 [History] [place]-3/Dha/Epa/Fish Oil [Fish Oil 1,000 mg Softgel] 1,000 mg PO DAILY 08/31/16 [History] hydrALAZINE [HydrALAZINE] 25 mg PO BID 08/31/16 [History] Carbidopa/Levodopa/Entacapone [Stalevo 200 Tablet] 1 tab PO BID 07/20/17 [History] GuaiFENesin/Dextromethorphan [Mucinex Dm] 1 tab PO BID 07/20/17 [History] Metoprolol Succinate [Toprol Xl] 100 mg PO DAILY 07/20/17 [History] Polyethylene Glycol 3350 [MiraLAX Powder Bulk 17.9 Oz] 1 scoop PO DAILY 07/20/17 [History] clonazePAM [Klonopin] 0.5 mg PO BID 07/20/17 [History] Acetaminophen [Tylenol 650mg SUPP] 650 mg RC Q4H PRN 01/26/18 [History] Bisacodyl [Dulcolax] 10 mg RC DAILY PRN 01/26/18 [History] Hyoscyamine [Levsin] 0.125 mg PO Q2H PRN 01/26/18 [History] Ipratropium/Albuterol Neb [Duoneb] 3 ml IH Q6HR PRN 01/26/18 [History] LORazepam [Lorazepam Intensol] 0.5 mg PO Q4H PRN 01/26/18 [History] Morphine Oral CONC [Roxanol] 5 - 10 mg PO Q2H PRN 01/26/18 [History] Promethazine [Phenergan] 25 mg RC Q12H PRN 01/26/18 [History] Sertraline [Zoloft] 50 mg PO DAILY 01/26/18 [History] traZODone [TraZODone] 25 mg PO HS 01/26/18 [History] Allergy/AdvReac Type Severity Reaction Status Date / Time No Known Allergies Allergy Verified 08/31/16 17:59 ROS unobtainable: due to mental status Palliative Care-Exam - Constitutional Vitals: Temp Pulse Resp BP Pulse Ox 97.8 F 70 16 137/58 98 01/27/18 12:16 01/27/18 12:16 01/27/18 12:16 01/27/18 12:16 01/27/18 12:16 General appearance: Present: no acute distress - Head Head Exam: Present: normal inspection, normocephalic - ENT Additional comments: large goiter noted - Respiratory Respiratory exam: Present: decreased breath sounds, CTAB - Cardiovascular Cardiovascular exam: Present: +S1, +S2 - GI/Abdominal Exam GI/Abdominal exam: Present: normal bowel sounds, soft - Extremities Exam Extremities exam: Present: normal capillary refill, normal inspection - Neurological Exam Neurological exam: Present: alert Additional comments: Oriented to name and place, but could not remember why she was here. Follows simple commands. CAMPOS - Skin Skin exam: Present: dry, pallor, warm Internal Medicine - CN: Reslt - Labs CBC & Chem 7: 01/27/18 05:21 01/27/18 05:21 Labs: Short CBC 01/26/18 01/27/18 Range/Units 14:40 05:21 WBC 7.6 (4.3-11.1) K/mcL Hgb 11.1 L D 9.7 L (11.5-15.4) g/dL Hct 33.8 L 29.8 L (35.3-44.9) % Plt Count 336 (140-400) K/mcL Neutrophils # 6.2 (1.6-8.9) K/mcL BMP 01/27/18 05:21 Sodium 139 Potassium 3.7 Chloride 110 H Carbon Dioxide 23 BUN 12 Creatinine 0.94 Glucose 88 Calcium 8.1 L - ABG Interpretation ABG results: PT/INR, D-dimer PT 12.5 Seconds (9.4-12.1) H 01/26/18 10:01 Consult Discharge Plan - Plan Referrals: NONE,PCP [Primary Care Provider] - Palliative Quality Palliative Quality: Screen for Code Status: Yes, Screen for Goals of Care: Yes, Screen for Pain: Yes, If Pain Regimen Started, Initiate Bowel Regimen: NA, Screen for Nausea/Vomitting: Yes Code Status: 01/26/18 05:14 Resuscitation Status: Active [RES] Routine Comment: Resuscitation Status: Full Code Resuscitation Status: Active [RES] Routine Comment: Resuscitation Status: [id number] Palliative Scale - Palliative Performance Scale How ambulatory is this patient?: Mainly sit / lie What is patient's level of activity and evidence of disease?: Unable to do most activity, Extensive disease How much self-care assistance does patient require?: Mainly assistance How much oral intake does the patient have?: Normal or reduced What is this patient's level of consciousness?: Full or drowsy with or without confusion Palliative Performance Score: 30 %
[2018-01-27] MEDS ORDERED: MORPHINE SUL Oral CONC 10 MG/0.5 ML ORAL.SYG SL PRN (12:52)
[2018-01-27] MEDS: hydrOXYzine pamoate 25 MG CAPSULE PO SCH (19:58)
[2018-01-27] MEDS: clonazePAM 0.5 MG TABLET PO SCH (19:58)
[2018-01-28] MEDS: Pantoprazole 40 MG in 0.9 % Sodium Chloride Mini Bag 100 ML IVC SCH ×2 (03:57→08:46)
[2018-01-28] MEDS: Levothyroxine 25 MCG TABLET PO SCH (06:03)
[2018-01-28 06:46] LABS: Basophils % 0.2 %; Eosinophils # 0.2 K/mcL (0.0-0.6); Hematocrit 33.1 % (35.3-44.9); Hemoglobin 10.5 g/dL (11.5-15.4); Immature Granulocytes % 0.4 % (0-4); Lymphocytes # 0.5 K/mcL (0.6-4.6); Lymphocytes % 4.6 %; Mean Corpuscular HGB Conc 31.7 g/dL (31.6-35.5); Mean Corpuscular Hemoglobin 26.7 pg (28.0-33.3); Mean Corpuscular Volume 84.2 fL (83.0-100.0); Mean Platelet Volume 9.5 fL (9.4-12.4); Monocytes # 0.8 K/mcL (0.0-1.3); Monocytes % 7.9 %; Neutrophils # 8.5 K/mcL (1.6-8.9); Platelet Count 362 K/mcL (140-400); Red Blood Count 3.93 M/mcL (3.82-4.97); Red Cell Distribution Width 14.5 % (11.5-14.5); Segmented Neutrophils % 84.9 %
[2018-01-28 07:12] LABS: BUN/Creatinine Ratio 13 (6-26); Blood Urea Nitrogen 12 mg/dL (8-23); Calcium 8.2 mg/dL (8.6-10.3); Carbon Dioxide 20 mEq/L (23-29); Chloride 109 mEq/L (98-107); Glucose 90 mg/dL (70-105); Osmolality,Calculated 285 (280-300); Potassium 3.8 mEq/L (3.5-5.1); Sodium 138 mEq/L (136-145); eGFR For Non-African Americans > 60 (> 60)
[2018-01-28] MEDS: GuaiFENesin/Dextromethorphan TABLET PO SCH (08:41)
[2018-01-28] MEDS: Carbidopa/Levodopa 25/100 TABLET PO SCH (08:41)
[2018-01-28] MEDS: amLODIPine 5 MG TABLET PO SCH (08:41)
[2018-01-28] MEDS: hydrALAZINE 25 MG TABLET PO SCH (08:41)
[2018-01-28] MEDS: Metoprolol XL (24 HR) Succ 50 MG TAB.ER.24H PO SCH (08:41)
[2018-01-28] MEDS: Cholecalciferol (D-3) 1,000 UNIT TABLET PO SCH ×2 (11:25→11:26)
[2018-01-28 12:02] VITALS: BP 138/54
--- NOTE | 2018-01-28 13:15 | Palliative Progress Note ---
Date of Encounter: 01/28/18 Time of Encounter: 11:00 - Assessment and plan (1) Goiter Status: Chronic Assessment and plan: Pt has a prominent goiter causing airways narrowing. she has refused any intervention. (2) Generalized pain Status: Acute Assessment and plan: Patient today denied pain. continue Roxanol (3) Ovarian mass, right Status: Acute Assessment and plan: CT findings discussed with pt's family, no further work up desired. Family requested report and copy was given. (4) Goals of care, counseling/discussion Status: Acute Assessment and plan: Met with pt's daughter and grand-daughter(POA) today. POA and living will papers were provided. Discussed current medical condition, family was glad that pt's Hb has stabilized, but understand that she can re-bleed at any time. they reiterated that pt at this point wanted only to be comfortable, therefore they would like pt to return to [place] on hospice, with [facility]. all questions answered, emotional support provide. discussed with Dr. Bui. - Time Spent With Patient Total time spent is greater than 50% in coordination of care (as documented) at patient's floor/unit and/or counseling patient: 25 - 35 minutes - Subjective Interval history: Pt today was alert, minimally communicative, but answering questions appropriately. She stated she was uncomfortable due to the goiter, denied abdominal pain or discomfort, nausea or vomiting. She is on clear liquid diet and denies hunger or thirst. - Constitutional Vitals: Abnormal lab results Hgb 10.5 g/dL (11.5-15.4) L 01/28/18 06:03 Hct 33.1 % (35.3-44.9) L 01/28/18 06:03 MCH 26.7 pg (28.0-33.3) L 01/28/18 06:03 Lymphocytes # 0.5 K/mcL (0.6-4.6) L 01/28/18 06:03 PT 12.5 Seconds (9.4-12.1) H 01/26/18 10:01 Chloride 109 mEq/L (98-107) H 01/28/18 06:03 Carbon Dioxide 20 mEq/L (23-29) L 01/28/18 06:03 Calcium 8.2 mg/dL (8.6-10.3) L 01/28/18 06:03 AST 12 Units/L (13-39) L 01/26/18 00:22 ALT < 3 Units/L (7-52) L 01/26/18 00:22 Serum Total Protein 5.2 g/dL (6.4-8.9) L 01/26/18 00:22 Albumin 3.1 g/dL (3.5-5.7) L 01/26/18 00:22 Globulin 2.1 g/dL (2.4-3.5) L 01/26/18 00:22 Lipase 10 Units/L (11-82) L 01/26/18 00:22 Exam: General appearance: Present: no acute distress - Head Head Exam: Present: normal inspection, normocephalic - ENT Additional comments: large goiter noted - Respiratory Respiratory exam: Present: decreased breath sounds, CTAB - Cardiovascular Cardiovascular exam: Present: +S1, +S2 - GI/Abdominal Exam GI/Abdominal exam: Present: normal bowel sounds, soft - Extremities Exam Extremities exam: Present: normal capillary refill, normal inspection - Neurological Exam Neurological exam: Present: alert Additional comments: Oriented to name and place, but could not remember why she was here. Follows s imple commands. CAMPOS - Skin Skin exam: Present: dry, pallor, warm Palliative Quality Palliative Quality: Screen for Code Status: Yes, Screen for Goals of Care: Yes, Screen for Pain: Yes, If Pain Regimen Started, Initiate Bowel Regimen: NA, Screen for Nausea/Vomitting: Yes Code Status: 01/26/18 05:14 Resuscitation Status: Active [RES] Routine Comment: Resuscitation Status: Full Code Resuscitation Status: Active [RES] Routine Comment: Resuscitation Status: [id number] - Labs CBC & Chem 7: 01/28/18 06:03 01/28/18 06:03 Labs: Laboratory Results - last 24 hr 01/28/18 01/28/18 06:03 06:03 WBC 10.0 RBC 3.93 Hgb 10.5 L Hct 33.1 L MCV 84.2 MCH 26.7 L MCHC 31.7 RDW 14.5 Plt Count 362 MPV 9.5 Immature Gran % 0.4 Seg Neutrophils % 84.9 Lymphocytes % 4.6 Monocytes % 7.9 Eosinophils % 2.0 Basophils % 0.2 Neutrophils # 8.5 Lymphocytes # 0.5 L Monocytes # 0.8 Eosinophils # 0.2 Basophils # 0.0 Sodium 138 Potassium 3.8 Chloride 109 H Carbon Dioxide 20 L BUN 12 Creatinine 0.89 Est GFR ( Amer) > 60 Est GFR (Non-Af Amer) > 60 BUN/Creatinine Ratio 13 Glucose 90 Calculated Osmolality 285 Calcium 8.2 L - ABG Interpretation ABG results: PT/INR, D-dimer PT 12.5 Seconds (9.4-12.1) H 01/26/18 10:01 Palliative Scale - Palliative Performance Scale How ambulatory is this patient?: Mainly sit / lie What is patient's level of activity and evidence of disease?: Unable to do most activity, Extensive disease How much self-care assistance does patient require?: Mainly assistance How much oral intake does the patient have?: Normal or reduced What is this patient's level of consciousness?: Full or drowsy with or without confusion Palliative Performance Score: 30 % Consult Discharge Plan - Plan Instructions: Gastrointestinal Bleeding (GEN), Parkinson's Disease (GEN), Anemia (GEN) Referrals: NONE,PCP [Primary Care Provider] - (in 1-2 weeks) Prescriptions: clonazePAM [Klonopin] 0.5 mg PO HS 10 Days #10 tablet Morphine Oral CONC [Roxanol] 5 - 10 mg PO Q4H PRN 30 Days #10 mls PRN Reason: pain/dyspnea Omeprazole [PriLOSEC] 40 mg PO BIDAC #60 capsule.
--- NOTE | 2018-01-28 14:02 | Discharge Summary ---
- NOTES TO OUTPATIENT PROVIDER Notes to Outpatient Provider: Patient with history of hypertension, thyroid disease was hospitalized here with complaints of coffee-ground emesis, dark tarry stools and initial CT scan of the abdomen and pelvis showed a large cystic mass with concern for malignancy. Patient also had long-standing right-sided pleural effusion causing compressive atelectasis. She was hospitalized for management of these conditions. However patient refused any further interventions. Her CODE STATUS was changed to DNR/DNI per her request. Palliative care was involved. Per discussion with palliative care, patient will be transitioned to [facility] hospice. She did receive 2 units of PRBC here. Her hemoglobin levels have since stabilized. She can follow up with her hospice provider for further management. Orders not resulted at time of discharge: Pending orders 01/28/18 05:20 Urinalysis Reflex Cult & Micro [URIN] Routine Date of Encounter: 01/28/18 Time of Encounter: 10:10 - Discharge Diagnosis (1) GI bleed Priority: Primary Status: Acute Qualifiers: GI bleed type/associated pathology: melena Qualified Code(s): K92.1 - Melena (2) DVT prophylaxis Priority: Secondary Status: Acute (3) Pelvic mass Priority: Secondary Status: Acute (4) Pleural effusion Priority: Secondary Status: Chronic Hospital course: Ms. Rooney is a 82 year old female Patient with history of hypertension, thyroid disease was hospitalized here with complaints of coffee-ground emesis, dark tarry stools and initial CT scan of the abdomen and pelvis showed a large cystic mass with concern for malignancy. Patient also had long-standing right-sided pleural effusion causing compressive atelectasis. She was hospitalized for management of these conditions. However patient refused any further interventions. Her CODE STATUS was changed to DNR/DNI per her request. Pallia tive care was involved. Per discussion with palliative care, patient will be transitioned to [facility] hospice. She did receive 2 units of PRBC here. Her hemoglobin levels have since stabilized. She can follow up with her hospice provider for further management. Discharge discussed with: patient, proposal consultant - Time Spent with Patient Total time spent providing and/or coordinating discharge services: Less than 30 minutes (35 min) - Discharge Medications Prescriptions: clonazePAM [Klonopin] 0.5 mg PO HS 10 Days #10 tablet Morphine Oral CONC [Roxanol] 5 - 10 mg PO Q4H PRN 30 Days #10 mls PRN Reason: pain/dyspnea Omeprazole [PriLOSEC] 40 mg PO BIDAC #60 capsule.dr Home Medications: Amlodipine Besylate 10 mg PO DAILY 08/31/16 [History] Ca/D3/Mag#11/Zinc/Scow Captain/Wing/Bor [Caltrate 600+D Plus Tablet] 1 each PO DAILY 08/31/16 [History] Levothyroxine [Synthroid] 25 mcg PO 0630 08/31/16 [History] [place]-3/Dha/Epa/Fish Oil [Fish Oil 1,000 mg Softgel] 1,000 mg PO DAILY 08/31/16 [History] hydrALAZINE [HydrALAZINE] 25 mg PO BID 08/31/16 [History] Carbidopa/Levodopa/Entacapone [Stalevo 200 Tablet] 1 tab PO BID 07/20/17 [History] GuaiFENesin/Dextromethorphan [Mucinex Dm] 1 tab PO BID 07/20/17 [History] Metoprolol Succinate [Toprol Xl] 100 mg PO DAILY 07/20/17 [History] Polyethylene Glycol 3350 [MiraLAX Powder Bulk 17.9 Oz] 1 scoop PO DAILY 07/20/17 [History] Acetaminophen [Tylenol 650mg SUPP] 650 mg RC Q4H PRN 01/26/18 [History] Bisacodyl [Dulcolax] 10 mg RC DAILY PRN 01/26/18 [History] Hyoscyamine [Levsin] 0.125 mg PO Q2H PRN 01/26/18 [History] Ipratropium/Albuterol Neb [Duoneb] 3 ml IH Q6HR PRN 01/26/18 [History] Promethazine [Phenergan] 25 mg RC Q12H PRN 01/26/18 [History] Sertraline [Zoloft] 50 mg PO DAILY 01/26/18 [History] traZODone [TraZODone] 25 mg PO HS 01/26/18 [History] Docusate [Colace] 100 mg PO BID PRN capsule 01/28/18 [Rx] Morphine Oral CONC [Roxanol] 5 - 10 mg PO Q4H PRN 30 Days #10 mls 01/28/18 [Rx] Omeprazole [PriLOSEC] 40 mg PO BIDAC #60 capsule. 01/28/18 [Rx] clonazePAM [Klonopin] 0.5 mg PO HS 10 Days #10 tablet 01/28/18 [Rx] Allergies/Adverse Reactions: Allergy/AdvReac Type Severity Reaction Status Date / Time No Known Allergies Allergy Verified 08/31/16 17:59 Date of admission: 01/26/18 02:22 Primary care physician: PCP NONE Consults: 01/26/18 05:15 Consult to Physical Therapy [CONS] Routine Comment: Evaluate, develop and implement POC Reason for Consult: Falls Does patient have active BEDREST order?: No Is patient medically & hemodynamically stable?: Yes Patient assessed for mobility or mobilized this visit?: No 01/26/18 08:28 Consult to Surgery [CONS] Stat Consulting Provider: Surgery [facility] Reason for Consult: acute GI bleed Time Notified: 08:29 Call Completed: Yes 01/26/18 08:40 Consult to Pulmonology [CONS] Routine Consulting Provider: Pulm [facility] Reason for Consult: mod to large RLL pleural effusion, no respiratory distress Time Notified: 08:40 Call Completed: Yes 01/26/18 12:07 Consult to Palliative Care [CONS] Routine Comment: Consulting Provider: Palliative Care Aditi Reason for Consult: Goals of care. Patient with GI bleed. Patient declining all treatment/sx interventions at this point other than home medications Time Notified: 11:30 Call Completed: Yes 01/28/18 12:20 Consult to Group Home Worker [CONS] Routine Reason for SW Consult: DC Planning 01/28/18 12:54 OT [Consult to Occupational Therapy] [CONS] Routine Comment: Evaluate, develop and implement POC Reason for Consult: FTT Does patient have active BEDREST order?: No Is patient medically & hemodynamically stable?: Yes Discharging clinician: Estela Bui Anticipated date of discharge: 01/28/18 - Constitutional Vitals: Temp Pulse Resp BP Pulse Ox 98.3 F 79 16 138/54 94 01/28/18 11:00 01/28/18 11:00 01/28/18 11:00 01/28/18 11:00 01/28/18 11:00 General appearance: Present: mild distress, A&O X 3, pleasant, underweight, answers questions appropriately Exam: . - Respiratory Respiratory exam: Present: CTAB. Absent: accessory muscle use, rales, rhonchi, wheezes - Cardiovascular Cardiovascular exam: Present: RRR, +S1, +S2. Absent: diastolic murmur, gallop, rubs, systolic murmur - GI/Abdominal GI/Abdominal exam: Present: normal bowel sounds, soft, no peritoneal signs. Absent: distended, tenderness - Patient Status Disposition: Transfer SNF Condition: Fair Functional capacity at discharge: bed bound Overall status at discharge: patient is progressing back to baseline - Discharge Instructions Instructions: Anemia (GEN) Follow Up With: NONE,PCP [Primary Care Provider] - (in 1-2 weeks) - Diet and Activity Activity: as per physical therapy Diet: advance to your usual diet
--- NOTE | 2018-01-28 14:14 | Physician Discharge Referral ---
ExtendedCare Referral Info Provider in Charge after Transfer: PCP, Trial Mgr Institutional Level of Care: Skilled - Diagnosis (1) GI bleed Priority: Primary Status: Acute (2) Pelvic mass Priority: Secondary Status: Acute (3) Pleural effusion Priority: Secondary Status: Chronic (4) DVT prophylaxis Priority: Secondary Status: Acute Prognosis: Poor Aware of Diagnosis: Patient, Family Aware of Prognosis: Patient, Family - Transfer Medications Prescriptions: clonazePAM [Klonopin] 0.5 mg PO HS 10 Days #10 tablet Morphine Oral CONC [Roxanol] 5 - 10 mg PO Q4H PRN 30 Days #10 mls PRN Reason: pain/dyspnea Omeprazole [PriLOSEC] 40 mg PO BIDAC #60 capsule.dr Home Medications: Amlodipine Besylate 10 mg PO DAILY 08/31/16 [History] Ca/D3/Mag#11/Zinc/Grinding Machine Tender/Wing/Bor [Caltrate 600+D Plus Tablet] 1 each PO DAILY 08/31/16 [History] Levothyroxine [Synthroid] 25 mcg PO 0630 08/31/16 [History] [place]-3/Dha/Epa/Fish Oil [Fish Oil 1,000 mg Softgel] 1,000 mg PO DAILY 08/31/16 [History] hydrALAZINE [HydrALAZINE] 25 mg PO BID 08/31/16 [History] Carbidopa/Levodopa/Entacapone [Stalevo 200 Tablet] 1 tab PO BID 07/20/17 [History] GuaiFENesin/Dextromethorphan [Mucinex Dm] 1 tab PO BID 07/20/17 [History] Metoprolol Succinate [Toprol Xl] 100 mg PO DAILY 07/20/17 [History] Polyethylene Glycol 3350 [MiraLAX Powder Bulk 17.9 Oz] 1 scoop PO DAILY 07/20/17 [History] Acetaminophen [Tylenol 650mg SUPP] 650 mg RC Q4H PRN 01/26/18 [History] Bisacodyl [Dulcolax] 10 mg RC DAILY PRN 01/26/18 [History] Hyoscyamine [Levsin] 0.125 mg PO Q2H PRN 01/26/18 [History] Ipratropium/Albuterol Neb [Duoneb] 3 ml IH Q6HR PRN 01/26/18 [History] Promethazine [Phenergan] 25 mg RC Q12H PRN 01/26/18 [History] Sertraline [Zoloft] 50 mg PO DAILY 01/26/18 [History] traZODone [TraZODone] 25 mg PO HS 01/26/18 [History] Docusate [Colace] 100 mg PO BID PRN capsule 01/28/18 [Rx] Morphine Oral CONC [Roxanol] 5 - 10 mg PO Q4H PRN 30 Days #10 mls 01/28/18 [Rx] Omeprazole [PriLOSEC] 40 mg PO BIDAC #60 capsule. 01/28/18 [Rx] clonazePAM [Klonopin] 0.5 mg PO HS 10 Days #10 tablet 01/28/18 [Rx] Allergies/Adverse Reactions: Allergy/AdvReac Type Severity Reaction Status Date / Time No Known Allergies Allergy Verified 08/31/16 17:59 - Respiratory Orders Smoking Cessation: Smoking cessation has been advised. For more information, call the [facility] Quit Line at 4-372-MJIP-NOW. - Advance Directives Code Status: DNR-Arrest/Don't Intubate - Mobility Orders Other (per PT) - Rehabiliation Orders Rehab Potential: Fair Rehab Orders: Evaluation for Physical Therapy, Evaluation for Occupational Therapy - Diet Orders Cardiac CERTIFICATION: I certify that the transfer of the above named patient to an Extended Care Facility is necessary for the continuing treatment of the diagnosis listed. The above information is true and accurate reflection of patient's current condition. Confidential - Redisclosure prohibited without a patient's written consent.
--- NOTE | 2018-01-28 14:31 | Electrocardiograph Report ---
[address] [address] Test Date: 2018-01-26 Pat Name: Rachel Rooney Department: [id number] Room: 2A45 Gender: F Test Carrier: : [id number] Requested By: Meenu Christy Order Number: [id number] Reading MD: Jillian Cruz Measurements Intervals [place] Rate: 88 P: 59 TX: 159 QRS: 13 QRSD: 90 T: 71 QT: 392 QTc: 475 Interpretive Statements Sinus rhythm Electronically Signed On 01-28-2018 14:30:27 EST by Jillian Cruz
[2018-01-28] MEDS ORDERED: Carbidopa/Levodopa 25/100 TABLET PO SCH (21:00)
== END 2018-01-28 15:06 ==
LOC: 2ANU 23:25 → EMEROOARM 23:25 → SUATTDRO 01-26 02:22 → 2ANU 01-26 02:59
PROVIDERS: ADMIT Family Medicine; ATTEND Internal Medicine